=== PATIENT | female | born 1970 | race Caucasian/White ===

== ENCOUNTER 2024-06-06 09:34 | Emergency (ER) | payer MEDICAID, OTHER ==
[~2024-06-06] VITALS: Ht 175.3 cm; Wt 129.5 kg
[2024-06-06 10:09] VITALS: BP 110/74; PULSE 69; RESP 16; TEMP 98.2; O2SAT 98
[2024-06-06 10:24] LABS: Urine Bacteria None Seen /hpf (None Seen)
--- NOTE | 2024-06-06 10:29 | ED.PDOC ---
History of Present Illness HPI Comments A 54 YEAR OLD FEMALE PRESENTS TO THE ED WITH COMPLAINT OF LEFT-SIDED PELVIC PAIN AND LEFT BREAST PAIN. PATIENT STATES SHE HAS A HISTORY OF A LEFT BREAST INFECTION OFF AND ON FOR THE PAST 2 YEARS AND BEGAN EXPERIENCING LEFT BREAST REDNESS AND PAIN YESTERDAY ONCE AGAIN. PATIENT REPORTS SHE HAS ALSO BEEN EXPERIENCING LEFT-SIDED PELVIC PAIN OFF AND ON FOR THE PAST 2 YEARS AND BEGAN TO EXPERIENCE PELVIC PAIN ONCE AGAIN YESTERDAY. PATIENT DENIES DYSURIA, HEMATURIA, FEVER, CHILLS, SHORTNESS OF BREATH, CHEST PAIN, ABDOMINAL PAIN, NAUSEA, VOMITI NG, HEADACHE, OR OTHER COMPLAINTS. NO OTHER SYMPTOMS OR MODIFYING FACTORS AT THIS TIME. PATIENT IS ALERT, ORIENTED X 4, AND HAS STEADY GAIT. Chief Complaint: Pelvic Pain Time Seen by MD: 09:40 Reviewed Notes: Nurses Notes, Medications, Allergies Allergies: Coded Allergies: NO KNOWN ALLERGIES (Unverified , 06/06/24) Home Meds Active Scripts Clindamycin Hcl (Clindamycin Hcl) 300 Mg Cap, 300 MG PO QID for 10 Days, #40 CAP Prov:ENRIKE RIOS 06/06/24 Ibuprofen (Ibuprofen) 800 Mg Tab, 1 TAB PO TID, #30 TAB Prov:ENRIKE RIOS 06/06/24 Information Source: Patient Mode of Arrival: Ambulatory Severity: Moderate Timing: Days Duration: Since onset, Days Prehospital treatment: None Medication Refill: For: Other (LEFT-SIDED PELVIC PAIN AND LEFT BREAST PAIN) Past Medical History Past Medical History (Other): CHRONIC LEFT PELVIC PAIN Surgical History: Denies all surgeries SENIOR FINANCIAL REPORTING ACCOUNTANT History: No Pertinent SENIOR FINANCIAL REPORTING ACCOUNTANT History Family History Family History: Reviewed,noncontributory to illness Social History Smoker: Non-Smoker Alcohol: Denies ETOH Use Drugs: Denies Drug Use Lives In: Home Constitutional: denies: chills, diaphoresis, fatigue, fever, malaise, sweats, weakness, others EENTM: denies: blurred vision, double vision, ear bleeding, ear discharge, ear drainage, ear pain, ear ringing, eye pain, eye redness, hearing loss, mouth pain, mouth swelling, nasal discharge, nose bleeding, nose congestion, nose pain, photophobia, tearing, throat pain, throat swelling, voice changes, others Respiratory: denies: cough, hemoptysis, orthopnea, SOB at rest, shortness of breath, SOB with excertion, stridor, wheezing, others Cardiovascular: denies: chest pain, dizzy spells, diaphoresis, Dyspnea on exertion, edema, irregular heart beat, left arm pain, lightheadedness, palpitations, PND, syncope, others Gastrointestinal: denies: abdomen distended, abdominal pain, blood streaked bowels, constipated, diarrhea, dysphagia, difficulty swallowing, hematemesis, melena, nausea, poor appetite, poor fluid intake, rectal bleeding, rectal pain, vomiting, others Genitourinary: reports: pain (LEFT PELVIC PAIN); denies: abnormal vagina bleeding, burning, dyspareunia, dysuria, flank pain, frequency, hematuria, incontinence, , vagina discharge, urgency, others Neurological: denies: dizziness, fainting, headache, left sided numbness, left sided weakness, numbness, paresthesia, pre-existing deficit, right sided numbness, right sided weakness, seizure, speech problems, tingling, tremors, weakness, others Musculoskeletal: denies: back pain, gout, joint pain, joint swelling, muscle pain, muscle stiffness, neck pain, others Integumetry: reports: others (LEFT-SIDED BREAST REDNESS WITH PAIN); denies: bruises, change in color, change in hair/nails, dryness, laceration, lesions, lumps, rash, wounds Allergic/Immunocompromised: denies: Difficulty Healing, Frequent Infections, Hives, Itching, others Hematologic/Lymphatic: denies: anemia, blood clots, easy bleeding, easy bruising, swollen glands, others Endocrine: denies: excessive hunger, excessive sweating, excessive thirst, excessive urination, flushing, intolerance to cold, intolerance to heat, unexplained weight gain, unexplained weight loss, others Psychiatric: denies: anxiety, bipolar disorder, depression, hopeless, panic disorder, schizophrenia, sleepless, suicidal, others All Other Systems: Reviewed and Negative Physical Exam General Appearance: No Apparent Distress, Obese HEENT: Normal ENT Inspection, PERRL/EOMI, Pharynx Normal, TMs Normal Neck: Full Range of Motion, Non-Tender, Normal, Normal Inspection Respiratory: Chest Non-Tender, Lungs Clear, No Accessory Muscle Use, No Respiratory Distress, Normal Breath Sounds Cardiovascular: No Edema, No JVD, No Murmur, No Gallop, Normal Peripheral Pu lses, Regular Rate/Rhythm Breast Exam: (L) Tenderness (WITH TWO SMALL RED BUMPS ON LEFT UPPER NIPPLE REGION, NO OPEN WOUND AND PUS DRAINAGE. ), Other (NO LUMP, CYSTS, OR NODULES NOTED TO BILATERAL BREASTS. ) Gastrointestinal: No Organomegaly, Non Tender, No Pulsatile Mass, Normal Bowel Sounds, Soft Genitalia: Deferred Pelvic: Normal External Exam, Tender Adnexa (TENDERNESS ON LEFT PELVIC, NO GUARDING AND REBOUND TENDERNESS. ) Rectal: Deferred Extremities: No calf tenderness, Normal capillary refill, Normal inspection, Normal range of motion, Non-tender, No pedal edema Musculoskeletal : Apperance: Normal Neurologic: Alert, dental chair assembler II-XII nml as Tested, No Motor Deficits, Normal Affect, Normal Mood, No Sensory Deficits Cerebellar Function: Normal Reflexes: Normal Skin: Dry, Normal Color, Warm Peripheral Pulses: 2+ carotid (R), 2+ carotid (L) Lymphatic: No Adenopathy Was a procedure done? Was a procedure done?: No Differential Dx Considerations may include: ACUTE UTI, ACUTE CYSTITIS, SOFT TISSUE INFECTION, BREAST CELLULITIS, SKIN PIMPLE , CHRONIC PELVIC PAIN X-Ray, Labs, Meds, VS Vital Signs Date Time Temp Pulse Resp B/P (MAP) Pulse Ox O2 Delivery O2 Flow Rate FiO2 06/06/24 10:09 98.2 69 16 110/74 (86) 98 98.2 06/06/24 10:09 69 16 98 Room Air 06/06/24 09:42 98.2 69 16 110/74 (86) 98 Lab Test 06/06/24 10:25 06/06/24 10:05 Range/Units White Blood Count 9.4 4.4-10.8 10^3/uL Red Blood Count 4.89 4.0-5.20 10^6/uL Hemoglobin 15.5 12.2-16.2 g/dL Hematocrit 45.1 36.0-46.0 % Mean Corpuscular Volume 92.3 80.0-100.0 fL Mean Corpuscular Hemoglobin 31.7 28.0-32.0 pg Mean Corpuscular Hemoglobin Concent 34.4 32.0-36.0 g/dL Red Cell Distribution Width 13.2 11.8-14.3 % Platelet Count 342 140-450 10^3/uL Mean Platelet Volume 7.1 6.9-10.8 fL Neutrophils (%) (Auto) 55.2 37.0-80.0 % Lymphocytes (%) (Auto) 35.1 10.0-50.0 % Monocytes (%) (Auto) 6.3 0.0-12.0 % Eosinophils (%) (Auto) 2.9 0.0-7.0 % Basophils (%) (Auto) 0.5 0.0-2.0 % Neutrophils # (Auto) 5.2 1.6-8.6 10 ^3/uL Lymphocytes # (Auto) 3.3 0.4-5.4 10 ^3/uL Monocytes # (Auto) 0.6 0-1.3 10 ^3/uL Eosinophils # (Auto) 0.3 0-0.8 10 ^3/uL Basophils # (Auto) 0 0-0.2 10 ^3/uL Nucleated Red Blood Cells 0.0 % Sodium Level 140 136-145 mmol/L Potassium Level 4.3 3.5-5.1 mmol/L Chloride Level 107 98-107 mmol/L Carbon Dioxide Level 28 20-31 mmol/L Anion Gap 5 5-15 Blood Urea Nitrogen 12 9-23 mg/dL Creatinine 0.71 0.550-1.02 mg/dL Glomerular Filtration Rate Calc 102 >90 mL/min BUN/Creatinine Ratio 16.9 10.0-20.0 Serum Glucose 83 74-106 mg/dL Calcium Level 9.4 8.7-10.4 mg/dL Urine Color Light-yellow Yellow Urine Clarity Clear Clear Urine pH 6.0 5.0-9.0 Urine Specific [place] 1.014 1.001-1.035 Urine Protein Negative Negative Urine Ketones Negative Negative Urine Blood Negative Negative /uL Urine Nitrite Negative Negative Urine Bilirubin Negative Negative Urine Urobilinogen Normal Negative mg/dL Urine Leukocyte Esterase Negative Negative /uL Urine RBC 1 0 - 4 /hpf Urine Microscopic WBC < 1 0-5 /HPF Urine Squamous Epithelial Cells Few <5 /hpf Urine Bacteria None seen None Seen /hpf Urine Glucose Normal Normal mg/dL PATIENT: JUDI VELÁSQUEZCCT: [id number]: [id number] : 1970 LOC: ER ROOM / BED: / AGE / SEX: 54 / F ADM STATUS: REG ER SERVICE 1019 ORDERING PHYSICIAN: ENRIKE RIOS PROCEDURE(s): PELUS - PELVIC REASON: LEFT PELVIC PAIN ORDER NUMBER(s): [id number], ACCESSION NUMBER(s): [id number] INDICATION: LEFT PELVIC PAIN TECHNIQUE: Multiple real-time grayscale transabdominal transvaginal sonographic images along with color and duplex Doppler of the uterus and ovaries were obtained. COMPARISON: None FINDINGS: The uterus measures 7.2 x 3.9 x 5.5 cm. The endometrial stripe measures 0.3 cm. Intrauterine device is visualized in the endometrial cavity. Possible trace fluid in the endometrium. The right ovary is not well visualized due to obscuration from bowel gas. The left ovary measures 2.1 x 1.9 x 2.2 cm. Subsequent color and duplex Doppler interrogation of the ovaries demonstrated symmetric vascular flow to both ovaries, though this does not exclude the possibility of torsion due to the dual blood supply. IMPRESSION: Intrauterine device is visualized in the endometrial cavity. Normal sonographic appearance of the uterus and left ovary. Right ovary obscured due to overlying bowel gas. ATED BY: MARLENE CHUA MD DICTATED DATE/TIME: 06/06/24 1132 SIGNED BY: MARLENE CHUA MD SIGNED DATE/TIME: 06/06/24 1132 X-Ray, Labs, Meds, VS Comment EXTERNAL MEDICAL RECORDS REVIEWED: [NONE] INDEPENDENT HISTORIANS: [NONE] SOCIAL DETERMINANTS OF HEALTH: [NONE] LABS ORDERED: UA, CBC, BMP REVIEWED AND INTERPRETED RESULTS: LEUKO 1+, BLOOD 3+ IMAGING ORDERED: US PELVIS: [INTERPRETED BY US TECH. NO ABNORMALITIES SEEN AT THIS TIME. IUD VISUALIZED. PENDING RADIOLOGY REVIEW.] PATIENT DECLINED CT-ABD/PELVIC SCAN AT THIS TIME, SHE STATES HER SYMPTOMS ARE A CHRONIC ISSUE. TREATMENTS ORDERED: NONE PROCEDURES PERFORMED: NONE CRITICAL CARE TIME: NONE I HAVE DISCUSSED THE PATIENT WITH THE ATTENDING PHYSICIAN DR. DELGADO AND HE AGREES WITH THE PATIENT'S PLAN OF CARE AND DISPOSITION. BASED ON HISTORY OF PRESENT ILLNESS, AND PHYSICAL EXAM, PATIENT WILL BE DISCHARGED HOME. SHARED DECISION MAKING: PATIENT INSTRUCTED TO FOLLOW UP WITH PRIMARY CARE PROVIDER IN 1-2 DAYS FOR RE-EVALUATION OF SYMPTOMS. PATIENT VERBALIZES UNDERSTANDING TO RETURN TO ED FOR NEW OR WORSENING SYMPTOMS OR IF FOLLOW UP WITH PCP CANNOT BE OBTAINED. PATIENT FEELS COMFORTABLE GOING HOME AT THIS TIME. ALL QUESTIONS ADDRESSED AT TIME OF DISCHARGE. Images Reviewed?: Images reviewed and evaluated by me Time of 1ST Reevaluation: 11:23 Reevaluation 1ST: Unchanged Patient Education/Counseling: Diagnosis, Treatment, Need For Follow Up Family Education/Counseling: Diagnosis, Treatment, Need For Follow Up Medical Screening: No EMC Exist At This Time Departure 1 Departure Time of Disposition: 11:24 Impression: Primary Impression: Chronic pelvic pain in female Additional Impressions: Pain of left breast Suspected soft tissue infection Disposition: HOME / SELF CARE / HOMELESS Condition: Stable Additional Instructions: FOLLOW-UP WITH PCP/CUTTING AND SPLICING SUPERVISOR IN 2 DAYS. TAKE MEDICATIONS PRESCRIBED. RETURN TO ED FOR ANY NEW OR WORSENING SYMPTOMS. e-Prescriptions Clindamycin Hcl (Clindamycin Hcl) 300 Mg Cap 300 MG PO QID for 10 Days, #40 CAP Prov: ENRIKE RIOS 06/06/24 Ibuprofen (Ibuprofen) 800 Mg Tab 1 TAB PO TID, #30 TAB Prov: ENRIKE RIOS 06/06/24 Discharged With: Self Critical Care Note Critical Care Time?: No Stability Stability form required: No I personally scribed for ENRIKE RIOS ([email or web address]) on 06/06/24 at 10:29. Elec tronically submitted by Kelton Trinidad ([email or web address]). ENRIKE RIOS Jun 06, 2024 10:29
[2024-06-06 10:40] LABS: Urine Blood Negative /uL (Negative); Urine Clarity Clear (Clear); Urine Color Light-Yellow (Yellow); Urine Protein, UAD Negative (Negative); Urine Specific Gravity 1.014 (1.001-1.035); Urine Squamous Epithelial Cell FEW /hpf (<5); Urine Urobilinogen Normal (Negative); Urine WBC < 1 /HPF (0-5)
[2024-06-06 10:49] LABS: Basophils # (auto) 0 10 ^3/uL (0-0.2); Basophils % (auto) 0.5 % (0.0-2.0); Eosinophils # (auto) 0.3 10 ^3/uL (0-0.8); Eosinophils % (auto) 2.9 % (0.0-7.0); Hematocrit 45.1 % (36.0-46.0); Hemoglobin 15.5 g/dL (12.2-16.2); Lymphocytes # (auto) 3.3 10 ^3/uL (0.4-5.4); Lymphocytes % (auto) 35.1 % (10.0-50.0); Mean Corpuscular Hemoglobin 31.7 pg (28.0-32.0); Mean Corpuscular Hgb Conc. 34.4 g/dL (32.0-36.0); Mean Corpuscular Volume 92.3 fL (80.0-100.0); Monocytes # (auto) 0.6 10 ^3/uL (0-1.3); Monocytes % (auto) 6.3 % (0.0-12.0); Neutrophils # (auto) 5.2 10 ^3/uL (1.6-8.6); Neutrophils % (auto) 55.2 % (37.0-80.0); Platelet Count (auto) 342 10^3/uL (140-450); Red Blood Cells 4.89 10^6/uL (4.0-5.20); Red Cell Distribution Width 13.2 % (11.8-14.3); White Blood Cell 9.4 10^3/uL (4.4-10.8)
[2024-06-06 10:57] LABS: Chloride 107 mmol/L (98-107); Potassium 4.3 mmol/L (3.5-5.1); Sodium 140 mmol/L (136-145)
[2024-06-06 10:58] LABS: Anion Gap 5 (5-15); Carbon Dioxide 28 mmol/L (20-31)
[2024-06-06 10:59] LABS: Calcium 9.4 mg/dL (8.7-10.4)
[2024-06-06 11:03] LABS: BUN/Creatinine Ratio 16.9 (10.0-20.0); Blood Urea Nitrogen 12 mg/dL (9-23); Glucose 83 mg/dL (74-106)
[2024-06-06] MEDS ORDERED: IBUP-1456 PO (11:27)
[2024-06-06] MEDS ORDERED: CLIN1CAP70 PO (11:27)
--- NOTE | 2024-06-06 11:34 | DVH ---
INDICATION: LEFT PELVIC PAIN TECHNIQUE: Multiple real-time grayscale transabdominal transvaginal sonographic images along with col or and duplex Doppler of the uterus and ovaries were obtained. COMPARISON: None FINDINGS: The uterus measures 7.2 x 3.9 x 5.5 cm. The endometrial stripe measures 0.3 cm. Intrauterin e device is visualized in the endometrial cavity. Possible trace fluid in the endometrium. The right ovary is not well visualized due to obscuration from bowel gas. The left ovary measures 2.1 x 1.9 x 2.2 cm. Subsequent color and duplex Doppler interrogation of the ovaries demonstrated symmetric vascular flow to both ovaries, though this does not exclude the possibility of torsion due to the dual blood suppl y. IMPRESSION: Intrauterine device is visualized in the endometrial cavity. Normal sonographic appearance of the [place] and left ovary. Right ovary obscured due to overlying bowel gas.
== END 2024-06-06 11:32 | disposition home or self-care (01) ==
LOC: ER 09:34
DX: N64.4 Mastodynia (principal); G89.29 Other chronic pain; R10.2 Pelvic and perineal pain; Z79.1 Long term (current) use of non-steroidal anti-inflammatories (NSAID)
CPT/HCPCS: 36415; 76830; 76856; 80048; 81001; 85025

== ENCOUNTER 2024-06-07 10:31 | Emergency (ER) | payer MEDICAID ==
[~2024-06-07] VITALS: Ht 175.3 cm; Wt 133.3 kg
[~2024-06-07 10:31] MED LIST: CLIN1CAP70 PO; IBUP-1456 PO
[2024-06-07 10:45] VITALS: BP 121/68; PULSE 66; RESP 22; TEMP 97.8; O2SAT 99
--- NOTE | 2024-06-07 10:53 | ED.PDOC ---
General HPI Comments A 54 YEAR OLD FEMALE PRESENTS TO THE ED WITH COMPLAINT OF RIGHT FLANK PAIN. PATIENT STATES SHE HAS BEEN EXPERIENCING RIGHT-SIDED FLANK PAIN THAT STARTED TODAY WHEN SHE WOKE UP. PATIENT WAS HERE IN THIS ED YESTERDAY FOR PELVIC PAIN WHERE AN ULTRASOUND AND LABS WERE DONE ALL OF WHICH WAS NORMAL. PATIENT DENIES DYSURIA, HEMATURIA, FEVER, CHILLS, SHORTNESS OF BREATH, CHEST PAIN, ABDOMINAL PAIN, NAUSEA, VOMITING, HEADACHE, OR OTHER COMPLAINTS. NO OTHER SYMPTOMS OR MODIFYING FACTORS AT THIS TIME. PATIENT IS ALERT, ORIENTED X 4, AND HAS STEADY GAIT. Chief Complaint: Abdominal Pain Time Seen by MD: 10:36 Reviewed notes: Nurses Notes, Medications, Allergies Allergies: Coded Allergies: NO KNOWN ALLERGIES (Unverified , 06/06/24) Home Meds Active Scripts Clindamycin Hcl (Clindamycin Hcl) 300 Mg Cap, 300 MG PO QID for 10 Days, #40 CAP Prov:ENRIKE RIOS 06/06/24 Ibuprofen (Ibuprofen) 800 Mg Tab, 1 TAB PO TID, #30 TAB Prov:ENRIKE RIOS 06/06/24 Information Source: Patient Mode of Arrival: Ambulatory Severity: Moderate Timing: Hours Duration: Since onset, Hours Prehospital treatment: None Onset: Spontaneous Symptoms: Other (FLANK PAIN) History of: None Location: (R) Flank Modifying factors: None associated signs and symptoms: Flank Pain Past Medical History Past Medical History (Other): HEP C Surgical History: Cholecystectomy ENERGY CONSERVATION DIRECTOR History: No Pertinent ENERGY CONSERVATION DIRECTOR History Family History Family History: Reviewed,noncontributory to illness Social History Smoker: Non-Smoker Alcohol: Denies ETOH Use Drugs: Denies Drug Use Lives In: Home Constitutional: denies: chills, diaphoresis, fatigue, fever, malaise, sweats, weakness, others EENTM: denies: blurred vision, double vision, ear bleeding, ear discharge, ear drainage, ear pain, ear ringing, eye pain, eye redness, hearing loss, mouth pain, mouth swelling, nasal discharge, nose bleeding, nose congestion, nose pain, photophobia, tearing, throat pain, throat swelling, voice changes, others Respiratory: denies: cough, hemoptysis, orthopnea, SOB at rest, shortness of breath, SOB with excertion, stridor, wheezing, others Cardiovascular: denies: chest pain, dizzy spells, diaphoresis, Dyspnea on exertion, edema, irregular heart beat, left arm pain, lightheadedness, palpitations, PND, syncope, others Gastrointestinal: denies: abdomen distended, abdominal pain, blood streaked bowels, constipated, diarrhea, dysphagia, difficulty swallowing, hematemesis, me davion, nausea, poor appetite, poor fluid intake, rectal bleeding, rectal pain, vomiting, others Genitourinary: reports: flank pain; denies: abnormal vagina bleeding, burning, dyspareunia, dysuria, frequency, hematuria, incontinence, pain, , vagina discharge, urgency, others Neurological: denies: dizziness, fainting, headache, left sided numbness, left sided weakness, numbness, paresthesia, pre-existing deficit, right sided numbness, right sided weakness, seizure, speech problems, tingling, tremors, weakness, others Musculoskeletal: denies: back pain, gout, joint pain, joint swelling, muscle pain, muscle stiffness, neck pain, others Integumetry: denies: bruises, change in color, change in hair/nails, dryness, laceration, lesions, lumps, rash, wounds, others Allergic/Immunocompromised: denies: Difficulty Healing, Frequent Infections, Hives, Itching, others Hematologic/Lymphatic: denies: anemia, blood clots, easy bleeding, easy bruising, swollen glands, others Endocrine: denies: excessive hunger, excessive sweating, excessive thirst, excessive urination, flushing, intolerance to cold, intolerance to heat, unexplained weight gain, unexplained weight loss, others Psychiatric: denies: anxiety, bipolar disorder, depression, hopeless, panic disorder, schizophrenia, sleepless, suicidal, others All Other Systems: Reviewed and Negative Physical Exam General Appearance: No Apparent Distress, Obese HEENT: Normal ENT Inspection, PERRL/EOMI, Pharynx Normal, TMs Normal Neck: Full Range of Motion, Non-Tender, Normal, Normal Inspection Respiratory: Chest Non-Tender, Lungs Clear, No Accessory Muscle Use, No Respiratory Distress, Normal Breath Sounds Cardiovascular: No Edema, No JVD, No Murmur, No Gallop, Normal Peripheral Pulses, Regular Rate/Rhythm Breast Exam: Deferred Gastrointestinal: No Organomegaly, No Pulsatile Mass, Normal Bowel Sounds, Soft, Tenderness (RIGHT FLANK, NO GUARDING AND REBOUND TENDERNESS, NO CVA TENDERNESS. ) Genitalia: Deferred Pelvic: Normal External Exam Rectal: Deferred Extremities: No calf tenderness, Normal capillary refill, Normal inspection, Normal range of motion, Non-tender, No pedal edema Musculoskeletal : Apperance: Normal Neurologic: Alert, patent drafter II-XII nml as Tested, No Motor Deficits, Normal Affect, Normal Mood, No Sensory Deficits Cerebellar Function: Normal Reflexes: Normal Skin: Dry, Normal Color, Warm Peripheral Pulses: 2+ carotid (R), 2+ carotid (L) Lymphatic: No Adenopathy Was a procedure done? Was a procedure done?: No Differential Diagnosis Kidney stone (Female): Hepatitis, Musculoskeletal pain, Pyelonephritis, Renal failure, Strain, Urolithiasis Kidney stone (Male): N/A Penile/Scrotal: N/A Urinary Problem (Male): Other Urinary Problem (Female): N/A X-Ray, Labs, Meds, VS Vital Signs Date Time Temp Pulse Resp B/P (MAP) Pulse Ox O2 Delivery O2 Flow Rate FiO2 06/07/24 10:45 97.8 66 22 121/68 (85) 99 97.8 06/07/24 10:45 66 22 99 Room Air 06/07/24 10:43 97.8 66 22 121/68 (85) 99 97.8 Lab Test 06/07/24 11:12 06/07/24 10:30 Range/Units White Blood Count 9.3 4.4-10.8 10^3/uL Red Blood Count 4.61 4.0-5.20 10^6/uL Hemoglobin 14.8 12.2-16.2 g/dL Hematocrit 42.5 36.0-46.0 % Mean Corpuscular Volume 92.2 80.0-100.0 fL Mean Corpuscular Hemoglobin 32.0 28.0-32.0 pg Mean Corpuscular Hemoglobin Concent 34.7 32.0-36.0 g/dL Red Cell Distribution Width 13.0 11.8-14.3 % Platelet Count 318 140-450 10^3/uL Mean Platelet Volume 7.3 6.9-10.8 fL Neutrophils (%) (Auto) 55.7 37.0-80.0 % Lymphocytes (%) (Auto) 34.3 10.0-50.0 % Monocytes (%) (Auto) 6.7 0.0-12.0 % Eosinophils (%) (Auto) 2.8 0.0-7.0 % Basophils (%) (Auto) 0.5 0.0-2.0 % Neutrophils # (Auto) 5.2 1.6-8.6 10 ^3/uL Lymphocytes # (Auto) 3.2 0.4-5.4 10 ^3/uL Monocytes # (Auto) 0.6 0-1.3 10 ^3/uL Eosinophils # (Auto) 0.3 0-0.8 10 ^3/uL Basophils # (Auto) 0 0-0.2 10 ^3/uL Nucleated Red Blood Cells 0.0 % Sodium Level 141 136-145 mmol/L Potassium Level 4.6 3.5-5.1 mmol/L Chloride Level 106 98-107 mmol/L Carbon Dioxide Level 30 20-31 mmol/L Anion Gap 5 5-15 Blood Urea Nitrogen 15 9-23 mg/dL Creatinine 0.64 0.550-1.02 mg/dL Glomerular Filtration Rate Calc 106 >90 mL/min BUN/Creatinine Ratio 23.4 H 10.0-20.0 Serum Glucose 88 74-106 mg/dL Calcium Level 9.1 8.7-10.4 mg/dL Total Bilirubin 0.5 0.2-1.0 mg/dL Aspartate Amino Transferase (AST) 39 13-40 U/L Alanine Aminotransferase (ALT) 57 H 7-40 U/L Alkaline Phosphatase 62 46-116 U/L Total Protein 6.9 5.7-8.2 g/dL Albumin 4.0 3.2-4.8 g/dL Lipase 39 12-53 U/L Urine Color Light-yellow Yellow Urine Clarity Clear Clear Urine pH 6.5 5.0-9.0 Urine Specific [place] 1.015 1.001-1.035 Urine Protein Negative Negative Urine Ketones Negative Negative Urine Blood Negative Negative /uL Urine Nitrite Negative Negative Urine Bilirubin Negative Negative Urine Urobilinogen Normal Negative mg/dL Urine Leukocyte Esterase Negative Negative /uL Urine RBC 1 0 - 4 /hpf Urine Microscopic WBC < 1 0-5 /HPF Urine Squamous Epithelial Cells Few <5 /hpf Urine Bacteria None seen None Seen /hpf Urine Glucose Normal Normal mg/dL Urine Opiates Screen Neg NEGATIVE Urine Fentanyl Screen Neg NEGATIVE Urine Barbiturates Screen Neg NEGATIVE Urine Phencyclidine Screen Neg NEGATIVE Urine Amphetamines Screen Neg NEGATIVE Urine Benzodiazepines Screen Neg NEGATIVE Urine Cocaine Screen Neg NEGATIVE Urine Cannabinoids Screen Pos NEGATIVE Current Medications Medications (Trade) Dose Ordered Sig/Sergio Route Start Time Stop Time Status Last Admin Ketorolac Tromethamine (Toradol Injection) 60 mg ONCE ONCE IM 06/07/24 12:15 06/07/24 12:16 DC 06/07/24 12:09 Procedure: CT CT AB PEL WO CON-NO ORAL OR IV 06/07/2024 10:42 AM Indication: RIGHT FLANK PAIN Comparison Study: None Technique: Axial images were obtained and reformatted in coronal and sagittal planes. All CT scans at this medical facility are performed using dose modulation techniques as appropriate to a performed exam including the follow ing: Automated exposure control was utilized; adjustment of the MA and/or KV according to patient size; and use of iterative reconstruction technique. CT Dose: CTDI volume is 25 mGy. Dose-length product is 1360.7 mGy*cm FINDINGS: Lower Chest: Unremarkable. Hepatobiliary: Hepatic steatosis. Gallbladder is surgically absent. Spleen: Unremarkable. Pancreas: Unremarkable. Adrenal Glands: Unremarkable. tract: The kidneys are normal in size bilaterally without hydronephrosis or nephrolithiasis. The urinary bladder is unremarkable. GI tract: The stomach is grossly normal in appearance. No evidence of small bowel obstruction. The large bowel is unremarkable. The appendix is normal. Lymphatics: No mesenteric, retroperitoneal or periportal lymphadenopathy. Vasculature: Aorta is normal in caliber. Scattered calcified plaques are noted. Pelvic Organs: Anteverted uterus. An IUD is seen that is tilted to the right penetrating uterine fundus with the tip of the left arm extending beyond the serosa. A 2.7 cm simple appearing pelvic cyst is seen on the right lateral aspect of the uterine cervix likely a peritoneal inclusion cyst. Bones/soft tissues: No acute abnormality. Degenerative changes of the lumbar spine noted. Small fat-containing umbilical hernia. Moderate chronic appearing depression of the superior endplate of T12 with approximately 50% loss of height centrally without retropulsion. Subcentimeter sclerotic focus noted in the right pubic body that may represent a benign bone island in the absence of known malignancy. Other: None. IMPRESSION: 1. No CT evidence of acute abnormality in the abdomen and pelvis. Specifically, no evidence of hydronephrosis, hydroureter or ureterolithiasis. The appendix is normal. 2. Myometrial penetration of the IUD. 3. Hepatic steatosis. ATED BY: JESSIE NEWMAN MD DICTATED DATE/TIME: 06/07/241211 SIGNED BY: JESSIE NEWMAN MD SIGNED DATE/TIME: 06/07/241211 CC: X-Ray, Labs, Meds, VS Comment EXTERNAL MEDICAL RECORDS REVIEWED: [NONE] INDEPENDENT HISTORIANS: [NONE] SOCIAL DETERMINANTS OF HEALTH: [NONE] LABS ORDERED: UA, UDS, CBC, CMP, LIPASE REVIEWED AND INTERPRETED RESULTS: THC POSITIVE IMAGING ORDERED: CT ABD/PEL 1225: I HAVE CONSULTED THE ON-CALL MERCHANDISING STOCK ASSOCIATE DR. MONTEZ REGARDING THIS PATIENT'S CASE AND CT SCAN RESULTS: MYOMETRIAL PENETRATION OF IUD AND SHE HAS SAID THIS IS NOT A MEDICAL EMERGENCY AND SHE CAN FOLLOW UP WITH HER MERCHANDISING STOCK ASSOCIATE FOR REMOVAL OF HER IUD. SHE HAS SAID THE PATIENT IS OKAY TO BE DISCHARGED HOME AT THIS TIME AND CAN FOLLOW UP WITH HER MERCHANDISING STOCK ASSOCIATE FOR REMOVAL OF HER IUD. TREATMENTS ORDERED: TORADOL 60MG IM PROCEDURES PERFORMED: NONE CRITICAL CARE TIME: NONE I HAVE DISCUSSED THE PATIENT WITH THE ATTENDING PHYSICIAN DR. EMIR HENRIQUEZ AND SHE AGREES WITH THE PATIENT'S PLAN OF CARE AND DISPOSITION. BASED ON HISTORY OF PRESENT ILLNESS, AND PHYSICAL EXAM, PATIENT WILL BE DISCHARGED HOME. SHARED DECISION MAKING: PATIENT INSTRUCTED TO FOLLOW UP WITH PRIMARY CARE PROVIDER IN 1-2 DAYS FOR RE-EVALUATION OF SYMPTOMS. PATIENT VERBALIZES UNDERSTANDING TO RETURN TO ED FOR NEW OR WORSENING SYMPTOMS OR IF FOLLOW UP WITH PCP CANNOT BE OBTAINED. PATIENT FEELS COMFORTABLE GOING HOME AT THIS TIME. ALL QUESTIONS ADDRESSED AT TIME OF DISCHARGE. Images Reviewed?: Images reviewed and evaluated by me Time of 1ST Reevaluation: 12:54 Reevaluation 1ST: Improved Consultation: geospatial imagery intelligence analyst (1225: I HAVE CONSULTED THE ON-CALL MERCHANDISING STOCK ASSOCIATE DR. MONTEZ REGARDING THIS PATIENT'S CASE AND CT SCAN RESULTS AND SHE HAS SAID THIS IS NOT A MEDICAL EMERGENCY AND SHE CAN FOLLOW UP WITH HER MERCHANDISING STOCK ASSOCIATE FOR REMOVAL OF HER IUD. SHE HAS SAID THE PATIENT IS OKAY TO BE DISCHARGED HOME AT THIS TIME AND CAN FOLLOW UP WITH HER MERCHANDISING STOCK ASSOCIATE FOR REMOVAL OF HER IUD.) Patient Education/Counseling: Diagnosis, Treatment, Need For Follow Up Family Education/Counseling: Diagnosis, Treatment, Need For Follow Up Medical Screening: No EMC Exist At This Time Departure 1 Departure Time of Disposition: 12:55 Impression: Primary Impression: Hepatic steatosis Additional Impressions: Pelvic cyst in female Malpositioned intrauterine device Qualified Codes: T83.32XA - Displacement of intrauterine contraceptive device, initial encounter Disposition: HOME / SELF CARE / HOMELESS Condition: Stable Additional Instructions: FOLLOW-UP WITH PCP/MERCHANDISING STOCK ASSOCIATE DELL. TAKE MEDICATIONS PRESCRIBED. RETURN TO ED FOR ANY NEW OR WORSENING SYMPTOMS. Written Prescriptions PT WAS IN THIS ER YESTERDAY AND WAS GIVEN PAIN RX. Discharged With: Self, Relative Critical Care Note Critical Care Time?: No Stability Stability form required: No I personally scribed for ENRIKE RIOS ([email or web address]) on 06/07/24 at 10:53. Electronically submitted by Kelton Trinidad ([email or web address]). I personally scribed for ENRIKE RIOS ([email or web address]) on 06/07/24 at 12:38. Electronically submitted by Kelton Trinidad ([email or web address]). ENRIKE RIOS Jun 07, 2024 10:53
[2024-06-07 11:33] LABS: Basophils # (auto) 0 10 ^3/uL (0-0.2); Basophils % (auto) 0.5 % (0.0-2.0); Eosinophils # (auto) 0.3 10 ^3/uL (0-0.8); Eosinophils % (auto) 2.8 % (0.0-7.0); Hematocrit 42.5 % (36.0-46.0); Hemoglobin 14.8 g/dL (12.2-16.2); Lymphocytes # (auto) 3.2 10 ^3/uL (0.4-5.4); Lymphocytes % (auto) 34.3 % (10.0-50.0); Mean Corpuscular Hgb Conc. 34.7 g/dL (32.0-36.0); Mean Corpuscular Volume 92.2 fL (80.0-100.0); Monocytes # (auto) 0.6 10 ^3/uL (0-1.3); Monocytes % (auto) 6.7 % (0.0-12.0); Neutrophils # (auto) 5.2 10 ^3/uL (1.6-8.6); Neutrophils % (auto) 55.7 % (37.0-80.0); Platelet Count (auto) 318 10^3/uL (140-450); Red Blood Cells 4.61 10^6/uL (4.0-5.20); White Blood Cell 9.3 10^3/uL (4.4-10.8)
[2024-06-07 11:36] LABS: Urine Bacteria None Seen /hpf (None Seen)
[2024-06-07 11:48] LABS: Alkaline Phosphatase 62 U/L (46-116); Anion Gap 5 (5-15); BUN/Creatinine Ratio 23.4 (10.0-20.0); Blood Urea Nitrogen 15 mg/dL (9-23); Calcium 9.1 mg/dL (8.7-10.4); Carbon Dioxide 30 mmol/L (20-31); Chloride 106 mmol/L (98-107); Glucose 88 mg/dL (74-106); Potassium 4.6 mmol/L (3.5-5.1); Sodium 141 mmol/L (136-145); Total Protein 6.9 g/dL (5.7-8.2)
[2024-06-07 11:48] LABS: Urine Blood Negative /uL (Negative); Urine Clarity Clear (Clear); Urine Color Light-Yellow (Yellow); Urine Protein, UAD Negative (Negative); Urine Specific Gravity 1.015 (1.001-1.035); Urine Squamous Epithelial Cell FEW /hpf (<5); Urine Urobilinogen Normal (Negative); Urine WBC < 1 /HPF (0-5); Urine pH 6.5 (5.0-9.0)
[2024-06-07 11:49] LABS: Alanine Aminotransferase 57 U/L (7-40); Aspartate Aminotransferase 39 U/L (13-40); Bilirubin, Total 0.5 mg/dL (0.2-1.0)
[2024-06-07 11:57] LABS: Cannabinoid Screen, Urine Pos (NEGATIVE)
[2024-06-07 11:58] LABS: Amphetamine Screen, Urine Neg (NEGATIVE); Barbiturate Scree,Urine Neg (NEGATIVE); Benzodiazephine Screen, Urine Neg (NEGATIVE); Cocaine Screen, Urine Neg (NEGATIVE); Opiate Scree,Urine Neg (NEGATIVE); Phencyclidine Screen, Urine Neg (NEGATIVE)
[2024-06-07] MEDS: KETOROLAC TROMETH 60MG/2ML VIAL IM ONE (12:09)
--- NOTE | 2024-06-07 12:14 | DVH ---
Procedure: CT CT AB PEL WO CON-NO ORAL OR IV 06/07/2024 10:42 AM Indication: RIGHT FLANK PAIN Comparison Study: None Technique: Axial images were obtained and reformatted in coronal and sagittal planes. All CT scans at this medical facility are performed using dose modulation techniques as appropriate to a performed e xam including the following: Automated exposure control was utilized; adjustment of the MA and/or KV according to patient size; and use of iterative reconstruction technique. CT Dose: CTDI volume is 25 mGy. Dose-length product is 1360.7 mGy*cm FINDINGS: Lower Chest: Unremarkable. Hepatobiliary: Hepatic steatosis. Gallbladder is surgically absent. Spleen: Unremarkable. Pancreas: Unremarkable. Adrenal Glands: Unremarkable. tract: The kidneys are normal in size bilaterally without hydronephrosis or nephrolithiasis. The u rinary bladder is unremarkable. GI tract: The stomach is grossly normal in appearance. No evidence of small bowel obstruction. The la rge bowel is unremarkable. The appendix is normal. Lymphatics: No mesenteric, retroperitoneal or periportal lymphadenopathy. Vasculature: Aorta is normal in caliber. Scattered calcified plaques are noted. Pelvic Organs: Anteverted uterus. An IUD is seen that is tilted to the right penetrating uterine fund us with the tip of the left arm extending beyond the serosa. A 2.7 cm simple appearing pelvic cyst i s seen on the right lateral aspect of the uterine cervix likely a peritoneal inclusion cyst. Bones/soft tissues: No acute abnormality. Degenerative changes of the lumbar spine noted. Small fat-c ontaining umbilical hernia. Moderate chronic appearing depression of the superior endplate of T12 wit h approximately 50% loss of height centrally without retropulsion. Subcentimeter sclerotic focus note d in the right pubic body that may represent a benign bone island in the absence of known malignancy. Other: None. IMPRESSION: 1. No CT evidence of acute abnormality in the abdomen and pelvis. Specifically, no evidence of hydro nephrosis, hydroureter or ureterolithiasis. The appendix is normal. 2. Myometrial penetration of the IUD. 3. Hepatic steatosis.
== END 2024-06-07 12:45 | disposition home or self-care (01) ==
LOC: ER 10:31
DX: T83.32XA Displacement of intrauterine contraceptive device, initial encounter (principal); K76.0 Fatty (change of) liver, not elsewhere classified; N94.89 Other specified conditions associated with female genital organs and menstrual cycle; Z98.890 Other specified postprocedural states; Z90.49 Acquired absence of other specified parts of digestive tract; Z79.1 Long term (current) use of non-steroidal anti-inflammatories (NSAID); Z79.899 Other long term (current) drug therapy
CPT/HCPCS: 36415; 74176; 80053; 80307; 81001; 83690; 85025; 96372; 99285; J1885

== ENCOUNTER 2024-06-09 09:43 | Emergency (ER) | payer MEDICAID ==
[~2024-06-09] VITALS: Ht 175.3 cm; Wt 132.5 kg
[2024-06-09 10:18] VITALS: BP 150/97; PULSE 84; RESP 19; TEMP 97.7; O2SAT 96
[2024-06-09] MEDS: methylPREDNISolone SOD SUCC 125 MG/2 ML VL IM ONE (10:35)
[2024-06-09] MEDS: KETOROLAC TROMETH 60MG/2ML VIAL IM ONE (10:36)
[2024-06-09] MEDS ORDERED: ACET500T58 PO (11:01)
--- NOTE | 2024-06-09 11:01 | ED.PDOC ---
Eye-HPI HPI Comments 54 year old F presents for sour taste in her mouth. Recently dx with strep and taking clindamycin. Also c/o tenderness to the bilateral cervical lymphnodes Chief Complaint: Sore Throat Time Seen by MD: 10:01 Primary Care Provider: none Reviewed Notes: Nurses Notes, Medications, Allergies Allergies: Coded Allergies: NO KNOWN ALLERGIES (Unverified , 06/06/24) Home Meds Active Scripts Acetaminophen (Acetaminophen) 500 Mg Tab, 500 MG PO Q6HP PRN for 10 Days, #40 TAB 0 Refills Prov:DURAN PRITCHARD Igor PIPELAYER 06/09/24 Clindamycin Hcl (Clindamycin Hcl) 300 Mg Cap, 300 MG PO QID for 10 Days, #40 CAP Prov:ENRIKE RIOS 06/06/24 Ibuprofen (Ibuprofen) 800 Mg Tab, 1 TAB PO TID, #30 TAB Prov:ENRIKE RIOS 06/06/24 Information Source: Patient Mode of Arrival: Ambulatory Past Medical History Surgical History: Cholecystectomy PAYROLL HUMAN RESOURCES ASSISTANT History: No Pertinent PAYROLL HUMAN RESOURCES ASSISTANT History Family History Family History: Reviewed,noncontributory to illness Social History Smoker: Non-Smoker Alcohol: Denies ETOH Use Drugs: Denies Drug Use Lives In: Home All Other Systems: Reviewed and Negative (Per Hpi ) Physical Exam General Appearance: No Apparent Distress, Normal HEENT: Normal ENT Inspection, Pharynx Normal, TMs Normal Neck: Full Range of Motion, Non-Tender, Normal, Normal Inspection Respiratory: Chest Non-Tender, Lungs Clear, No Accessory Muscle Use, No Respiratory Distress, Normal Breath Sounds Cardiovascular: No Murmur, No Gallop, Regular Rate/Rhythm Breast Exam: Deferred Gastrointestinal: No Organomegaly, Non Tender, No Pulsatile Mass, Normal Bowel Sounds, Soft Genitalia: Deferred Pelvic: Deferred Rectal: Deferred Extremities: No calf tenderness, Normal capillary refill, Normal inspection, Normal range of motion, Non-tender, No pedal edema Musculoskeletal : Apperance: Normal Neurologic: Alert, No Motor Deficits, Normal Affect, Normal Mood, No Sensory Deficits Cerebellar Function: Normal Reflexes: Normal Skin: Dry, Normal Color, Warm Lymphatic: No Adenopathy Was a procedure done? Was a procedure done?: No EENT DIFF Eye: Other Sore Throat: Streptococcal, Viral Pharyngitis, URI X-Ray, Labs, Meds, VS Vital Signs Date Time Temp Pulse Resp B/P (MAP) Pulse Ox O2 Delivery O2 Flow Rate FiO2 06/09/24 10:18 84 19 96 Room Air 06/09/24 10:18 97.7 84 19 150/97 (114) 96 97.7 06/09/24 09:54 97.7 84 19 150/97 (114) 96 97.7 Current Medications Medications (Trade) Dose Ordered Sig/Sergio Route Start Time Stop Time Status Last Admin Methylprednisolone Sodium Succinate (Solu Medrol) 125 mg ONCE ONCE IM 06/09/24 10:30 06/09/24 10:31 DC 06/09/24 10:35 Ketorolac Tromethamine (Toradol Injection) 60 mg ONCE ONCE IM 06/09/24 10:30 06/09/24 10:31 DC 06/09/24 10:36 X-Ray, Labs, Meds, VS Comment After ROS and physical examination there were no red flags. Findings consistent with cervical lymphadenitis and patient was given reassurance for her symptoms. Advised that the sour sitting taste may be due to the bacterial infection however she is currently on the current therapy and advised to complete the entire course even if the symptoms resolve. Also recommended warm fluids with the alignment on a, salt water gargles and [id number] Tylenol or ibuprofen for pain Return precautions discussed if symptoms do not improve and patient agreed to plan Time of 1ST Reevaluation: 11:00 Reevaluation 1ST: Improved Patient Education/Counseling: Diagnosis, Treatment Family Education/Counseling: Diagnosis, Treatment Departure 1 Departure Time of Disposition: 11:00 Impression: Primary Impression: Cervical lymphadenitis Disposition: 01 HOME / SELF CARE / HOMELESS Condition: Stable e-Prescriptions Acetaminophen (Acetaminophen) 500 Mg Tab 500 MG PO Q6HP PRN for 10 Days, #40 TAB 0 Refills Prov: DURAN PRITCHARD NP 06/09/24 Discharged With: Self Critical Care Note Critical Care Time?: No Stability Stability form required: No Heart Score Heart Score: Heart Score Response (Comments) Value History N/A 0 EKG N/A 0 Age N/A 0 Risk Factors N/A 0 Troponin N/A 0 Total 0 DURAN PRITCHARD NP Jun 09, 2024 11:01
== END 2024-06-09 11:10 | disposition home or self-care (01) ==
LOC: ER 09:43
DX: I88.9 Nonspecific lymphadenitis, unspecified (principal); Z90.49 Acquired absence of other specified parts of digestive tract; Z79.1 Long term (current) use of non-steroidal anti-inflammatories (NSAID); Z79.899 Other long term (current) drug therapy
CPT/HCPCS: 96372; 99284; J1885; J2919

== ENCOUNTER 2024-06-11 09:18 | Inpatient (IN) | payer MEDICAID ==
[~2024-06-11] VITALS: Ht 175.3 cm; Wt 132.4 kg
[2024-06-11 00:32] VITALS: BP 103/70; PULSE 70; RESP 18; TEMP 98.3; O2SAT 99
[~2024-06-11 09:18] MED LIST changes: +ACET500T58 PO
--- NOTE | 2024-06-11 09:59 | ED.PDOC ---
History of Present Illness HPI Comments 54F presents to the Er w/ prior Hx of Cholecystectomy and Ovarian Cyst Sx which may be associated to the c/c if N/V/D. Pt reports that she has been to the hospital on sunday of 06/06/24 for N/ as well as UC yesterday for N/ and woke up this morning w/ /V/D. Denies chills, fever, N/V/D, SOB, CP or no other ass ociated symptom's, modifiers, recent injuries or sick contacts at this time. Chief Complaint: Nausea/Vomiting Time Seen by MD: 09:45 Primary Care Provider: KATE GABRIEL SUNDAY Reviewed Notes: Nurses Notes, Medications, Allergies Allergies: Coded Allergies: NO KNOWN ALLERGIES (Unverified , 06/06/24) Home Meds Active Scripts Acetaminophen (Acetaminophen) 500 Mg Tab, 500 MG PO Q6HP PRN for 10 Days, #40 TAB 0 Refills Prov:DURAN PRITCHARD PREPARATION ROOM WORKER 06/09/24 Clindamycin Hcl (Clindamycin Hcl) 300 Mg Cap, 300 MG PO QID for 10 Days, #40 CAP Prov:ENRIKE RIOS 06/06/24 Ibuprofen (Ibuprofen) 800 Mg Tab, 1 TAB PO TID, #30 TAB Prov:ENRIKE RIOS 06/06/24 Information Source: Patient Mode of Arrival: Ambulatory Severity: Moderate Timing: Days Duration: Since onset, Days Prehospital treatment: None Past Medical History PAST MEDICAL HISTORY: Denies Surgical History: Cholecystectomy Surgical History (Other): Ovarian Cyst Sx ACCOUNTS PAYABLE ANALYST History: No Pertinent ACCOUNTS PAYABLE ANALYST History Family History Family History: Reviewed,noncontributory to illness, Unknown Social History Smoker: Non-Smoker Alcohol: Denies ETOH Use Drugs: Denies Drug Use Lives In: Home Constitutional: denies: chills, diaphoresis, fatigue, fever, malaise, sweats, weakness, others EENTM: denies: blurred vision, double vision, ear bleeding, ear discharge, ear drainage, ear pain, ear ringing, eye pain, eye redness, hearing loss, mouth pain, mouth swelling, nasal discharge, nose bleeding, nose congestion, nose vasu n, photophobia, tearing, throat pain, throat swelling, voice changes, others Respiratory: denies: cough, hemoptysis, orthopnea, SOB at rest, shortness of breath, SOB with excertion, stridor, wheezing, others Cardiovascular: denies: chest pain, dizzy spells, diaphoresis, Dyspnea on exertion, edema, irregular heart beat, left arm pain, lightheadedness, palpitations, PND, syncope, others Gastrointestinal: reports: diarrhea, nausea, vomiting; denies: abdomen distended, abdominal pain, blood streaked bowels, constipated, dysphagia, difficulty swallowing, hematemesis, melena, poor appetite, poor fluid intake, rectal bleeding, rectal pain, others Genitourinary: denies: abnormal vagina bleeding, burning, dyspareunia, dysuria, flank pain, frequency, hematuria, incontinence, pain, , vagina discharge, urgency, others Neurological: denies: dizziness, fainting, headache, left sided numbness, left sided weakness, numbness, paresthesia, pre-existing deficit, right sided n umbness, right sided weakness, seizure, speech problems, tingling, tremors, weakness, others Musculoskeletal: denies: back pain, gout, joint pain, joint swelling, muscle pain, muscle stiffness, neck pain, others Integumetry: denies: bruises, change in color, change in hair/nails, dryness, laceration, lesions, lumps, rash, wounds, others Allergic/Immunocompromised: denies: Difficulty Healing, Frequent Infections, Hives, Itching, others Hematologic/Lymphatic: denies: anemia, blood clots, easy bleeding, easy bruising, swollen glands, others Endocrine: denies: excessive hunger, excessive sweating, excessive thirst, excessive urination, flushing, intolerance to cold, intolerance to heat, unexplained weight gain, unexplained weight loss, others Psychiatric: denies: anxiety, bipolar disorder, depression, hopeless, panic disorder, schizophrenia, sleepless, suicidal, others All Other Systems: Reviewed and Negative Physical Exam General Appearance: Moderate Distress, Normal HEENT: Normal ENT Inspection, Pharynx Normal, TMs Normal Neck: Full Range of Motion, Non-Tender, Normal, Normal Inspection Respiratory: Chest Non-Tender, Lungs Clear, No Accessory Muscle Use, No Respiratory Distress, Normal Breath Sounds Cardiovascular: No Edema, No JVD, No Murmur, No Gallop, Normal Peripheral Pulses, Regular Rate/Rhythm Breast Exam: Deferred Gastrointestinal: No Organomegaly, Non Tender, No Pulsatile Mass, Normal Bowel Sounds, Soft Genitalia: Deferred Pelvic: Deferred Rectal: Deferred Extremities: No calf tenderness, Normal capillary refill, Normal inspection, Normal range of motion, Non-tender, No pedal edema Musculoskeletal : Apperance: Normal Neurologic: Alert, lift driver II-XII nml as Tested, No Motor Deficits, Normal Affect, Normal Mood, No Sensory Deficits Cerebellar Function: Normal Reflexes: Normal Skin: Dry, Normal Color, Warm Peripheral Pulses: 3+ Radial (R), 3+ Radial (L) Lymphatic: No Adenopathy Was a procedure done? Was a procedure done?: No Differential Dx Considerations may include: Gastroenteritis Electrolyte imbalance X-Ray, Labs, Meds, VS Vital Signs Date Time Temp Pulse Resp B/P (MAP) Pulse Ox O2 Delivery O2 Flow Rate FiO2 06/11/24 10:15 78 14 95 Room Air* 0 21 06/11/24 10:14 98.3 78 14 103/67 (79) 95 98.3 06/11/24 09:40 97.6 84 18 117/78 (91) 95 97.6 Lab Test 06/11/24 09:49 06/11/24 09:41 Range/Units White Blood Count 8.5 4.4-10.8 10^3/uL Red Blood Count 4.96 4.0-5.20 10^6/uL Hemoglobin 16.0 12.2-16.2 g/dL Hematocrit 45.8 36.0-46.0 % Mean Corpuscular Volume 92.4 80.0-100.0 fL Mean Corpuscular Hemoglobin 32.3 H 28.0-32.0 pg Mean Corpuscular Hemoglobin Concent 35.0 32.0-36.0 g/dL Red Cell Distribution Width 13.5 11.8-14.3 % Platelet Count 330 140-450 10^3/uL Mean Platelet Volume 7.1 6.9-10.8 fL Neutrophils (%) (Auto) 58.8 37.0-80.0 % Lymphocytes (%) (Auto) 31.2 10.0-50.0 % Monocytes (%) (Auto) 7.7 0.0-12.0 % Eosinophils (%) (Auto) 1.8 0.0-7.0 % Basophils (%) (Auto) 0.5 0.0-2.0 % Neutrophils # (Auto) 5.0 1.6-8.6 10 ^3/uL Lymphocytes # (Auto) 2.7 0.4-5.4 10 ^3/uL Monocytes # (Auto) 0.7 0-1.3 10 ^3/uL Eosinophils # (Auto) 0.2 0-0.8 10 ^3/uL Basophils # (Auto) 0 0-0.2 10 ^3/uL Nucleated Red Blood Cells 0.1 % Sodium Level 141 136-145 mmol/L Potassium Level 4.0 3.5-5.1 mmol/L Chloride Level 108 H 98-107 mmol/L Carbon Dioxide Level 27 20-31 mmol/L Anion Gap 6 5-15 Blood Urea Nitrogen 17 9-23 mg/dL Creatinine 0.69 0.550-1.02 mg/dL Glomerular Filtration Rate Calc 104 >90 mL/min BUN/Creatinine Ratio 24.6 H 10.0-20.0 Serum Glucose 90 74-106 mg/dL Calcium Level 8.6 L 8.7-10.4 mg/dL Urine Color Light-yellow Yellow Urine Clarity Clear Clear Urine pH 5.5 5.0-9.0 Urine Specific [place] 1.016 1.001-1.035 Urine Protein Negative Negative Urine Ketones Negative Negative Urine Blood Negative Negative /uL Urine Nitrite Negative Negative Urine Bilirubin Negative Negative Urine Urobilinogen Normal Negative mg/dL Urine Leukocyte Esterase Negative Negative /uL Urine RBC 1 0 - 4 /hpf Urine Microscopic WBC < 1 0-5 /HPF Urine Squamous Epithelial Cells Few <5 /hpf Urine Bacteria None seen None Seen /hpf Urine Glucose Normal Normal mg/dL Patient alert. Complaining of nausea vomiting diarrhea. Has been having these symptoms for many days. Vitals stable. GI consultation. WBC within normal limits. Establish intravenous access. Was given fluids. GI consultation for colonoscopy. Reviewed history. Explained to the patient. Continue cardiac monitoring. Time of 1ST Reevaluation: 10:15 Reevaluation 1ST: Unchanged Patient Education/Counseling: Diagnosis, Treatment, Prognosis Family Education/Counseling: No Family Present Departure 1 Departure Time of Disposition: 11:13 Impression: Primary Impression: Gastroenteritis Disposition: ADMITTED INPATIENT Admit to: Med Surg Condition: Guarded Critical Care Note Critical Care Time?: No Stability Stability form required: No Heart Score Heart Score: Heart Score Response (Comments) Value History N/A 0 EKG N/A 0 Age N/A 0 Risk Factors N/A 0 Troponin N/A 0 Total 0 I personally scribed for LEIA DOE MD ([email or web address]) on 06/11/24 at 09:59. Electronically submitted by Pawan Raymundo ([email or web address]). LEIA DOE MD Jun 11, 2024 09:59
[2024-06-11 10:07] LABS: Basophils # (auto) 0 10 ^3/uL (0-0.2); Basophils % (auto) 0.5 % (0.0-2.0); Eosinophils # (auto) 0.2 10 ^3/uL (0-0.8); Eosinophils % (auto) 1.8 % (0.0-7.0); Hematocrit 45.8 % (36.0-46.0); Lymphocytes # (auto) 2.7 10 ^3/uL (0.4-5.4); Lymphocytes % (auto) 31.2 % (10.0-50.0); Mean Corpuscular Hemoglobin 32.3 pg (28.0-32.0); Mean Corpuscular Volume 92.4 fL (80.0-100.0); Monocytes # (auto) 0.7 10 ^3/uL (0-1.3); Monocytes % (auto) 7.7 % (0.0-12.0); Neutrophils % (auto) 58.8 % (37.0-80.0); Nucleated Red Blood Cells % 0.1 %; Platelet Count (auto) 330 10^3/uL (140-450); Red Blood Cells 4.96 10^6/uL (4.0-5.20); Red Cell Distribution Width 13.5 % (11.8-14.3); White Blood Cell 8.5 10^3/uL (4.4-10.8)
[2024-06-11 10:15] VITALS: PULSE 78; RESP 14; O2SAT 95
[2024-06-11 10:20] LABS: Sodium 141 mmol/L (136-145)
[2024-06-11 10:21] LABS: Anion Gap 6 (5-15); Carbon Dioxide 27 mmol/L (20-31)
[2024-06-11 10:22] LABS: Calcium 8.6 mg/dL (8.7-10.4); Chloride 108 mmol/L (98-107)
[2024-06-11 10:26] LABS: BUN/Creatinine Ratio 24.6 (10.0-20.0); Blood Urea Nitrogen 17 mg/dL (9-23); Glucose 90 mg/dL (74-106)
[2024-06-11 10:44] LABS: Urine Bacteria None Seen /hpf (None Seen)
[2024-06-11 10:55] LABS: Urine Blood Negative /uL (Negative); Urine Clarity Clear (Clear); Urine Color Light-Yellow (Yellow); Urine Protein, UAD Negative (Negative); Urine Specific Gravity 1.016 (1.001-1.035); Urine Squamous Epithelial Cell FEW /hpf (<5); Urine Urobilinogen Normal (Negative); Urine WBC < 1 /HPF (0-5); Urine pH 5.5 (5.0-9.0)
[2024-06-11] MEDS: SODIUM CHLORIDE 0.9% 1,000 ML IV ONE (11:15)
[2024-06-11] MEDS: ONDANSETRON HCL 4 MG/2 ML VIAL IV ONE (11:15)
[2024-06-11 22:48] VITALS: PULSE 71; RESP 18; O2SAT 94
--- NOTE | 2024-06-11 23:16 | DVHHPRES ---
History of Present Illness Resident Creating Document: DEWAYNE BRIGGS Reason for Visit: RUQ pain History of Present Illness Patient is a 54-year-old female who presented to the ER with a chief complaint of right upper quadrant pain with radiation to right lower quadrant. Per patient, Pain has been going on for a while. She reported to ED on 06/06/2024 where a ultrasound showed Intrauterine device in the endometrial cavity with a normal sonographic appearance of the uterus and left ovary. Right ovary obscured due to overlying bowel gas. Patient was sent referred to [facility] for further care. There, she saw the physician who attempted to remove the IUD, but could not find the tread. Patient was sent home with pain medication and asked to follow up with her reese/mattress finisher. Unable to to tolerate this pain, Patient reported back to the ED today for worsening right flank pain and general feeling of unwell. Pain was associated with nausea, vomiting and diarrhea. She denies chills, fever, SOB, CP or no other associated symptom's, modifiers, recent injuries or sick contacts at this time. 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 Review of Systems Constitutional: malaise HEENT: Denies headache, ear pain, ear discharges, conjunctivitis, nasal discharge throat pain Cardiovascular: Denies chest pain, palpitation, orthopnea, PND, or pedal edema Respiratory: Steven shortness of breath, cough cough, sputum production, hemoptysis, GI: abdominal pain, nausea, vomiting, diarrhea, No hematemesis, hematochezia, : Denies frequency, urgency, hematuria, Endocrine: Denies unintentional weight gain or weight loss, feeling of hot flashes, Dean: Denies easy bruising, bleeding disorders, epistaxis Musculoskeletal: Denies joint pains, muscle aches Psych: No evidence of depression, jose, suicidal ideation Allergies: Coded Allergies: NO KNOWN ALLERGIES (Unverified , 06/06/24) Exam Vital Signs Vital Signs Date Time Temp Pulse Resp B/P (MAP) Pulse Ox O2 Delivery O2 Flow Rate FiO2 06/11/24 22:48 98.0 71 18 125/81 (96) 94 98.0 06/11/24 22:48 Room Air* 0 21 Exam General Appearance: Alert, Oriented X3, Cooperative, Morbidly obese female HEENT: Atraumatic, PERRLA, EOMI, Mucous membrane moist/pink Respiratory: Clear to auscultation, Normal air movement Cardiovascular: Regular rate, Normal S1, Normal S2, No murmurs, no chest wall tenderness Abdominal: Enlarged abdomen, tenderness in he RUQ and lower RLQ WITH some notable tenderness in the epigastrium. Extremities: Bilateral pitting Edema edema, Normal pulses, No tenderness/swelling Skin: No rashes, No breakdown, No significant lesion Neuro: Normal gait, Normal speech, Strength at 5/5 X4 ext, Normal tone, Sensation intact, Cranial nerves 3-12 NL, Reflexes 2+ Psych/Mental Status: Mental status NL, Mood NL Labs/Xrays Labs Test 06/11/24 09:49 06/11/24 09:41 Range/Units White Blood Count 8.5 4.4-10.8 10^3/uL Red Blood Count 4.96 4.0-5.20 10^6/uL Hemoglobin 16.0 12.2-16.2 g/dL Hematocrit 45.8 36.0-46.0 % Mean Corpuscular Volume 92.4 80.0-100.0 fL Mean Corpuscular Hemoglobin 32.3 H 28.0-32.0 pg Mean Corpuscular Hemoglobin Concent 35.0 32.0-36.0 g/dL Red Cell Distribution Width 13.5 11.8-14.3 % Platelet Count 330 140-450 10^3/uL Mean Platelet Volume 7.1 6.9-10.8 fL Neutrophils (%) (Auto) 58.8 37.0-80.0 % Lymphocytes (%) (Auto) 31.2 10.0-50.0 % Monocytes (%) (Auto) 7.7 0.0-12.0 % Eosinophils (%) (Auto) 1.8 0.0-7.0 % Basophils (%) (Auto) 0.5 0.0-2.0 % Neutrophils # (Auto) 5.0 1.6-8.6 10 ^3/uL Lymphocytes # (Auto) 2.7 0.4-5.4 10 ^3/uL Monocytes # (Auto) 0.7 0-1.3 10 ^3/uL Eosinophils # (Auto) 0.2 0-0.8 10 ^3/uL Basophils # (Auto) 0 0-0.2 10 ^3/uL Nucleated Red Blood Cells 0.1 % Sodium Level 141 136-145 mmol/L Potassium Level 4.0 3.5-5.1 mmol/L Chloride Level 108 H 98-107 mmol/L Carbon Dioxide Level 27 20-31 mmol/L Anion Gap 6 5-15 Blood Urea Nitrogen 17 9-23 mg/dL Creatinine 0.69 0.550-1.02 mg/dL Glomerular Filtration Rate Calc 104 >90 mL/min BUN/Creatinine Ratio 24.6 H 10.0-20.0 Serum Glucose 90 74-106 mg/dL Calcium Level 8.6 L 8.7-10.4 mg/dL Urine Color Light-yellow Yellow Urine Clarity Clear Clear Urine pH 5.5 5.0-9.0 Urine Specific [place] 1.016 1.001-1.035 Urine Protein Negative Negative Urine Ketones Negative Negative Urine Blood Negative Negative /uL Urine Nitrite Negative Negative Urine Bilirubin Negative Negative Urine Urobilinogen Normal Negative mg/dL Urine Leukocyte Esterase Negative Negative /uL Urine RBC 1 0 - 4 /hpf Urine Microscopic WBC < 1 0-5 /HPF Urine Squamous Epithelial Cells Few <5 /hpf Urine Bacteria None seen None Seen /hpf Urine Glucose Normal Normal mg/dL Assessment/Plan Assessment/Plan Retained IUD --> RUQ pain -> Cash Grain Grower consult --> Repeat CBC, PT/INR in the AM Mild metabolic Alkalosis --> Preferred Lactated ringer's Morbid obesity --> BMI: 42.8 --> Counseled pain on walking an exercise Bilateral pitting Edema rule out DVT --> Doppler negative --> BNP Pending Hypocalcemia --> Vitamin D DVT ruled out Goal of care discussed for more than 30 minutes, full code Case and plan discussed with Dr. Mackey Plan discussed with: Patient My Orders Orders - DEWAYNE BRIGGS RESIDENT Procedure Category Date Status Time Admit ADMIT 06/11/24 Transmitted 23:07 Code Status CODE 06/11/24 Transmitted 23:07 Vital Signs [facility] 06/11/24 Transmitted 23:07 Review Orders With [facility] 06/11/24 Transmitted Adm. 23:07 Npo (Nothing By DIET 06/12/24 Transmitted Mouth) Diet Breakfast Notify Of Changes [facility] 06/11/24 Transmitted From Base 23:07 Advance Directive [facility] 06/11/24 Transmitted 23:07 Patient Condition ORDERS 06/11/24 Transmitted 23:07 Allergies LIZZETH 06/11/24 Transmitted 23:07 Notify Md Of Changes LIZZETH 06/11/24 Transmitted From Base 23:07 Basic Metabolic Panel LAB 06/12/24 Verified 04:00 Complete Blood Count LAB 06/12/24 Verified 04:00 * Supervisor Train Operations Consultation CONS 06/11/24 Transmitted 23:07 Date of Service: Jun 11, 2024 Billing Provider: CORINNA MACKEY MD Common Visit Codes: 46975-[id number] INP/OBS CARE (HIGH) DEWAYNE BRIGGS RESIDENT Jun 11, 2024 23:16 CORINNA MACKEY MD Jun 12, 2024 11:06
[2024-06-11] MEDS ORDERED: MORPHINE SULFATE INJ 2 MG/ml SYRG IV PRN (23:30)
[2024-06-12] VITALS (9 sets, daily range): BP systolic 103–133; BP diastolic 59–84; PULSE 64–78; RESP 17–20; TEMP 97.7–98.3; O2SAT 92–99
[2024-06-12] MEDS: MORPHINE SULFATE INJ 2 MG/ml SYRG IV ONE (00:14)
--- NOTE | 2024-06-12 01:47 | DVH ---
Bilateral lower extremity venous duplex Clinical History: rule out DVT Comparison: None Technique: Duplex Doppler evaluation of the deep venous systems of both lower extremities from the common femora l veins to the popliteal veins including color Doppler and spectral/pulsed waveform analysis was perf ormed. Findings: RIGHT SIDE: The common femoral vein demonstrates appropriate compressibility and waveform variability. There is compressibility/patency of the great saphenous vein at the proximal thigh. The femoral vein demonstrates appropriate compressibility and waveform variability. The deep femoral vein demonstrates appropriate compressibility and waveform variability. The popliteal vein demonstrates appropriate compressibility and waveform variability. There is normal compressibility at the tibioperoneal trunk. LEFT SIDE: The common femoral vein demonstrates appropriate compressibility and waveform variability. There is compressibility/patency of the great saphenous vein at the proximal thigh. The femoral vein demonstrates appropriate compressibility and waveform variability. The deep femoral vein demonstrates appropriate compressibility and waveform variability. The popliteal vein demonstrates appropriate compressibility and waveform variability. There is normal compressibility at the tibioperoneal trunk. Impression: 1. No right or left femoropopliteal venous thrombosis.
[2024-06-12 06:40] LABS: Basophils # (auto) 0 10 ^3/uL (0-0.2); Basophils % (auto) 0.3 % (0.0-2.0); Eosinophils # (auto) 0.2 10 ^3/uL (0-0.8); Eosinophils % (auto) 3.1 % (0.0-7.0); Hemoglobin 14.5 g/dL (12.2-16.2); Lymphocytes # (auto) 3.5 10 ^3/uL (0.4-5.4); Lymphocytes % (auto) 44.4 % (10.0-50.0); Mean Corpuscular Hgb Conc. 34.4 g/dL (32.0-36.0); Mean Corpuscular Volume 93.1 fL (80.0-100.0); Monocytes # (auto) 0.7 10 ^3/uL (0-1.3); Monocytes % (auto) 9.2 % (0.0-12.0); Neutrophils # (auto) 3.4 10 ^3/uL (1.6-8.6); Nucleated Red Blood Cells % 0.1 %; Platelet Count (auto) 289 10^3/uL (140-450); Red Blood Cells 4.51 10^6/uL (4.0-5.20); Red Cell Distribution Width 13.3 % (11.8-14.3); White Blood Cell 7.9 10^3/uL (4.4-10.8)
[2024-06-12 06:50] LABS: Potassium 3.7 mmol/L (3.5-5.1); Sodium 143 mmol/L (136-145)
[2024-06-12 06:51] LABS: Anion Gap 7 (5-15); Carbon Dioxide 26 mmol/L (20-31)
[2024-06-12 06:56] LABS: BUN/Creatinine Ratio 18.5 (10.0-20.0); Blood Urea Nitrogen 10 mg/dL (9-23); Glucose 83 mg/dL (74-106)
[2024-06-12 07:04] LABS: Calcium 8.7 mg/dL (8.7-10.4); Chloride 110 mmol/L (98-107)
[2024-06-12 08:02] LABS: Alkaline Phosphatase 64 U/L (46-116); CRP High Sensitivity 0.08 mg/dL (<1.0); Total Protein 6.1 g/dL (5.7-8.2)
[2024-06-12 08:03] LABS: Albumin 3.6 g/dL (3.2-4.8); Aspartate Aminotransferase 34 U/L (13-40)
[2024-06-12 08:04] LABS: Alanine Aminotransferase 48 U/L (7-40); Bilirubin, Direct < 0.1 mg/dL (<0.3); Bilirubin, Total 0.2 mg/dL (0.2-1.0)
[2024-06-12 08:15] LABS: Erythrocyte Sedimentation Rate 11 mm/hr (0-20)
[2024-06-12] MEDS: HYDROcodone-ACET 5/325MG TAB PO PRN (11:22)
[2024-06-12] MEDS: SODIUM CHLORIDE 0.9% 1,000 ML IV SCH (11:22)
[2024-06-12] MEDS: CIPROFLOXACIN 400MG/200ML 200 ML IV SCH (11:22)
--- NOTE | 2024-06-12 11:29 | DVHPNRES ---
Progress Note Date Seen: Jun 12, 2024 Resident Creating Document: JONATAN GRAY RESIDENT Has the PT tested + for MRSA If YES, has PT been informed?: No Medical Necessity Reason Pt with a Central, PICC or Fol: No Subjective Review of Systems Patient is a 54-year-old female who presented to the ER with a chief complaint of right upper quadrant pain with radiation to right lower quadrant. Per patient, Pain has been going on for a while. She reported to ED on 06/06/2024 where a ultrasound showed Intrauterine device in the endometrial cavity with a normal sonographic appearance of the uterus and left ovary. Right ovary obscured due to overlying bowel gas. Patient was sent referred to for further care. There, she saw the physician who attempted to remove the IUD, but could not find the tread. Patient was sent home with pain medication and asked to follow up with her reese/document management consultant. Unable to to tolerate this pain, Patient reported back to the ED today for worsening right flank pain and general feeling of unwell. Pain was associated with nausea, vomiting and diarrhea. She denies chills, fever, SOB, CP or no other associated symptom's, modifiers, recent injuries or sick contacts at this time. 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 Vital Sign Date Time Temp Pulse Resp B/P (MAP) Pulse Ox O2 Delivery O2 Flow Rate FiO2 06/12/24 08:30 98.0 78 19 119/78 (92) 92 98.0 06/12/24 08:00 Room Air* 0 21 Total Intake and Output 06/11/24 06/11/24 06/12/24 15:00 23:00 07:00 Intake Total 1000 ml 0 ml Output Total 450 ml Balance 1000 ml -450 ml medications Current Medications Medications Dose Ordered Sig/Sergio Route Start Time Stop Time Status Last Admin Dose Admin Ciprofloxacin 200 ml @ 200 mls/hr Q12HR IV 06/12/24 10:30 06/12/24 11:22 200 MLS/HR Metronidazole 100 ml @ 100 mls/hr Q8HR IV 06/12/24 11:30 Sodium Chloride 1,000 ml @ 75 mls/hr [id number] IV 06/12/24 10:30 06/12/24 11:22 75 MLS/HR Acetaminophen/ Hydrocodone Bitart 1 tab Q6HPRN PRN PO 06/12/24 10:30 06/12/24 11:22 1 TAB Examination General Appearance: Alert, Oriented X3, Cooperative, Morbidly obese female HEENT: Atraumatic, PERRLA, EOMI, Mucous membrane moist/pink Respiratory: Clear to auscultation, Normal air movement Cardiovascular: Regular rate, Normal S1, Normal S2, No murmurs, no chest wall tenderness Abdominal: obese, no tenderness at palpation Extremities: Bilateral pitting Edema 1+ , Normal pulses, No tenderness/swelling Skin: No rashes, No breakdown, No significant lesion Neuro: Normal gait, Normal speech, Strength at 5/5 X4 ext, Normal tone, Sensation intact, Cranial nerves 3-12 NL, Reflexes 2+ Psych/Mental Status: Mental status NL, Mood NL laboratory and microbiology Laboratory Tests 06/12/24 05:23 Test 06/12/24 05:23 Range/Units Serum Glucose 83 74-106 mg/dL Problem List/Assessment/Plan Problem List/Assessment/Plan Acute gastroenteritis stool studies metronidazole + ciprofloxacin IV c diff studies stool studies iv fluids Retained IUD --> RUQ pain -> Caregivers Homecare consult Mild metabolic Alkalosis Morbid obesity --> BMI: 42.8 --> Counseled pain on walking an exercise Bilateral pitting Edema --> Doppler negative Hypocalcemia --> Vitamin D DVT ruled out Goal of care discussed for more than 30 minutes, full code Case and plan discussed with Dr. Hutchinson Plan discussed with: Patient, Other (rn) My Orders My Orders Orders - JONATAN GRAY RESIDENT Procedure Category Date Status Time Stool Wbc LAB 06/12/24 Logged 09:07 Stool Bacterial JESSY 06/12/24 Uncollected Culture 09:07 Stool Occult Blood LAB 06/12/24 Logged 09:07 Clostridium Difficile JESSY 06/12/24 Uncollected Toxin 09:07 Communication Order ORDERS 06/12/24 Transmitted 09:08 Ciprofloxacin PHA 06/12/24 In Process 400mg/200ml (Cipro Iv) 10:30 Metronidazole PHA 06/12/24 In Process 500mg/100ml (Flagyl 11:30 Sodium Chloride 0.9% PHA 06/12/24 In Process 10:30 Hydrocodone-Acet PHA 06/12/24 In Process 5/325mg Tab ([place] 10:30 JONATAN GRAY RESIDENT Jun 12, 2024 11:29
[2024-06-12] MEDS: metroNIDAZOLE 500MG/100ML 100 ML IV SCH (14:37)
[2024-06-13 05:00] VITALS: BP 113/72; PULSE 70; RESP 18; TEMP 97.7; O2SAT 93
[2024-06-13 05:16] LABS: Basophils # (auto) 0 10 ^3/uL (0-0.2); Basophils % (auto) 0.4 % (0.0-2.0); Eosinophils # (auto) 0.3 10 ^3/uL (0-0.8); Eosinophils % (auto) 3.7 % (0.0-7.0); Hemoglobin 14.9 g/dL (12.2-16.2); Lymphocytes # (auto) 3.6 10 ^3/uL (0.4-5.4); Lymphocytes % (auto) 42.8 % (10.0-50.0); Mean Corpuscular Hemoglobin 32.6 pg (28.0-32.0); Mean Corpuscular Hgb Conc. 35.6 g/dL (32.0-36.0); Mean Corpuscular Volume 91.7 fL (80.0-100.0); Monocytes # (auto) 0.7 10 ^3/uL (0-1.3); Monocytes % (auto) 7.7 % (0.0-12.0); Neutrophils # (auto) 3.8 10 ^3/uL (1.6-8.6); Neutrophils % (auto) 45.4 % (37.0-80.0); Nucleated Red Blood Cells % 0.1 %; Platelet Count (auto) 296 10^3/uL (140-450); Red Blood Cells 4.58 10^6/uL (4.0-5.20); White Blood Cell 8.4 10^3/uL (4.4-10.8)
[2024-06-13 05:38] LABS: Albumin 3.6 g/dL (3.2-4.8); Alkaline Phosphatase 62 U/L (46-116); Anion Gap 6 (5-15); Aspartate Aminotransferase 37 U/L (13-40); BUN/Creatinine Ratio 9.5 (10.0-20.0); Bilirubin, Total 0.4 mg/dL (0.2-1.0); Calcium 8.7 mg/dL (8.7-10.4); Carbon Dioxide 25 mmol/L (20-31); Glucose 92 mg/dL (74-106); Sodium 141 mmol/L (136-145); Total Protein 6.2 g/dL (5.7-8.2)
[2024-06-13 05:39] LABS: Alanine Aminotransferase 48 U/L (7-40); Blood Urea Nitrogen 6 mg/dL (9-23); Chloride 110 mmol/L (98-107)
[2024-06-13 09:00] VITALS: BP 126/73; PULSE 62; RESP 18; TEMP 97.6; O2SAT 91
--- NOTE | 2024-06-13 13:51 | DVHINCON2 ---
Date of service: Jun 13, 2024 Referring Physician hospitalist Reason for Consultation possible perforated iud History of Present Illness the pt is admitted for gastroenteritis,she had a ct which showed possible perforated iud .the sono revealed normal intrauterine iud.[facility] an a ttempt was made to have iud removed but string was not visualized.her last pap was in 2019 Past Medical History hep c,anxiety Past Surgical History cholecystectomy,ovarian cystectomy Family History na Social History na Allergies: Coded Allergies: NO KNOWN ALLERGIES (Unverified , 06/06/24) Home Meds Active Scripts Acetaminophen (Acetaminophen) 500 Mg Tab, 500 MG PO Q6HP PRN for 10 Days, #40 TAB 0 Refills Prov:DURAN PRITCHARD [employer] CONSULTANT 06/09/24 Clindamycin Hcl (Clindamycin Hcl) 300 Mg Cap, 300 MG PO QID for 10 Days, #40 CAP Prov:ENRIKE RIOS 06/06/24 Ibuprofen (Ibuprofen) 800 Mg Tab, 1 TAB PO TID, #30 TAB Prov:ENRIKE RIOS 06/06/24 Review of Systems c/w hpi Vital Signs Vital Signs Date Time Temp Pulse Resp B/P (MAP) Pulse Ox O2 Delivery O2 Flow Rate FiO2 06/13/24 09:00 97.6 62 18 126/73 (90) 91 97.6 06/13/24 08:00 Room Air* 0 21 Physical Exam heent -wnl cv rrr lungs cta abd soft,no rigidity or rebound pelvic- vag nl,cx nl no string noted ,uterus nt and nl size,adenxa nt Labs/Diagnostic Data Labs Test 06/13/24 04:34 06/12/24 12:41 06/12/24 05:23 06/11/24 09:41 Range/Units White Blood Count 8.4 4.4-10.8 10^3/uL Red Blood Count 4.58 4.0-5.20 10^6/uL Hemoglobin 14.9 12.2-16.2 g/dL Hematocrit 42.0 36.0-46.0 % Mean Corpuscular Volume 91.7 80.0-100.0 fL Mean Corpuscular Hemoglobin 32.6 H 28.0-32.0 pg Mean Corpuscular Hemoglobin Concent 35.6 32.0-36.0 g/dL Red Cell Distribution Width 13.0 11.8-14.3 % Platelet Count 296 140-450 10^3/uL Mean Platelet Volume 7.0 6.9-10.8 fL Neutrophils (%) (Auto) 45.4 37.0-80.0 % Lymphocytes (%) (Auto) 42.8 10.0-50.0 % Monocytes (%) (Auto) 7.7 0.0-12.0 % Eosinophils (%) (Auto) 3.7 0.0-7.0 % Basophils (%) (Auto) 0.4 0.0-2.0 % Neutrophils # (Auto) 3.8 1.6-8.6 10 ^3/uL Lymphocytes # (Auto) 3.6 0.4-5.4 10 ^3/uL Monocytes # (Auto) 0.7 0-1.3 10 ^3/uL Eosinophils # (Auto) 0.3 0-0.8 10 ^3/uL Basophils # (Auto) 0 0-0.2 10 ^3/uL Nucleated Red Blood Cells 0.1 % Sodium Level 141 136-145 mmol/L Potassium Level 4.0 3.5-5.1 mmol/L Chloride Level 110 H 98-107 mmol/L Carbon Dioxide Level 25 20-31 mmol/L Anion Gap 6 5-15 Blood Urea Nitrogen 6 L 9-23 mg/dL Creatinine 0.63 0.550-1.02 mg/dL Glomerular Filtration Rate Calc 107 >90 mL/min BUN/Creatinine Ratio 9.5 L 10.0-20.0 Serum Glucose 92 74-106 mg/dL Calcium Level 8.7 8.7-10.4 mg/dL Total Bilirubin 0.4 0.2-1.0 mg/dL Aspartate Amino Transferase (AST) 37 13-40 U/L Alanine Aminotransferase (ALT) 48 H 7-40 U/L Alkaline Phosphatase 62 46-116 U/L Total Protein 6.2 5.7-8.2 g/dL Albumin 3.6 3.2-4.8 g/dL Stool Occult Blood Negative Negative Stool Occult Blood Sample #3 Negative Stool for White Cells None seen Erythrocyte Sedimentation Rate 11 0-20 mm/hr Direct Bilirubin < 0.1 <0.3 mg/dL C-Reactive Protein High Sensitivity 0.08 <1.0 mg/dL B-Type Natriuretic Peptide 9.40 0-100 pg/mL Urine Color Light-yellow Yellow Urine Clarity Clear Clear Urine pH 5.5 5.0-9.0 Urine Specific [place] 1.016 1.001-1.035 Urine Protein Negative Negative Urine Ketones Negative Negative Urine Blood Negative Negative /uL Urine Nitrite Negative Negative Urine Bilirubin Negative Negative Urine Urobilinogen Normal Negative mg/dL Urine Leukocyte Esterase Negative Negative /uL Urine RBC 1 0 - 4 /hpf Urine Microscopic WBC < 1 0-5 /HPF Urine Squamous Epithelial Cells Few <5 /hpf Urine Bacteria None seen None Seen /hpf Urine Glucose Normal Normal mg/dL Primary Diagnosis iud in uterus with nonvisualized string 2' Diagnosis/Comorbidities hepc,gstroenteritis Plan supportive care fu out pt for pap will sign off thank you Plan discussed with: Patient Visit Coding OBGYN Date of Service: Jun 13, 2024 Billing Provider: CHRISTINE MONTEZ DO STRUCTURAL WELDER Common Visit Codes: [id number] INP/OBS CARE (HIGH) STRUCTURAL WELDER Consultation Codes: [id number] CONSULT <110MIN CHRISTINE MONTEZ DO Jun 13, 2024 13:51
[2024-06-13] MEDS ORDERED: CIPR500T4 PO (14:44)
[2024-06-13] MEDS ORDERED: METR-344 PO (14:44)
[2024-06-13] MEDS ORDERED: DICY10CA PO (15:00)
--- NOTE | 2024-06-13 15:00 | DVHDSRES ---
Discharge Summary Date of Admission Resident Creating Document: JONATAN GRAY RESIDENT Jun 11, 2024 at 23:07 Date of Discharge: Jun 13, 2024 Admitting Diagnosis Intractable abdominal pain Labs/Diagnostic Data: Laboratory Results Test 06/13/24 04:34 06/12/24 12:41 06/12/24 05:23 06/11/24 09:41 White Blood Count 8.4 10^3/uL (4.4-10.8) Red Blood Count 4.58 10^6/uL (4.0-5.20) Hemoglobin 14.9 g/dL (12.2-16.2) Hematocrit 42.0 % (36.0-46.0) Mean Corpuscular Volume 91.7 fL (80.0-100.0) Mean Corpuscular Hemoglobin 32.6 pg (28.0-32.0) Mean Corpuscular Hemoglobin Concent 35.6 g/dL (32.0-36.0) Red Cell Distribution Width 13.0 % (11.8-14.3) Platelet Count 296 10^3/uL (140-450) Mean Platelet Volume 7.0 fL (6.9-10.8) Neutrophils (%) (Auto) 45.4 % (37.0-80.0) Lymphocytes (%) (Auto) 42.8 % (10.0-50.0) Monocytes (%) (Auto) 7.7 % (0.0-12.0) Eosinophils (%) (Auto) 3.7 % (0.0-7.0) Basophils (%) (Auto) 0.4 % (0.0-2.0) Neutrophils # (Auto) 3.8 10 ^3/uL (1.6-8.6) Lymphocytes # (Auto) 3.6 10 ^3/uL (0.4-5.4) Monocytes # (Auto) 0.7 10 ^3/uL (0-1.3) Eosinophils # (Auto) 0.3 10 ^3/uL (0-0.8) Basophils # (Auto) 0 10 ^3/uL (0-0.2) Nucleated Red Blood Cells 0.1 % Sodium Level 141 mmol/L (136-145) Potassium Level 4.0 mmol/L (3.5-5.1) Chloride Level 110 mmol/L (98-107) Carbon Dioxide Level 25 mmol/L (20-31) Anion Gap 6 (5-15) Blood Urea Nitrogen 6 mg/dL (9-23) Creatinine 0.63 mg/dL (0.550-1.02) Glomerular Filtration Rate Calc 107 mL/min (>90) BUN/Creatinine Ratio 9.5 (10.0-20.0) Serum Glucose 92 mg/dL (74-106) Calcium Level 8.7 mg/dL (8.7-10.4) Total Bilirubin 0.4 mg/dL (0.2-1.0) Aspartate Amino Transferase (AST) 37 U/L (13-40) Alanine Aminotransferase (ALT) 48 U/L (7-40) Alkaline Phosphatase 62 U/L (46-116) Total Protein 6.2 g/dL (5.7-8.2) Albumin 3.6 g/dL (3.2-4.8) Stool Occult Blood Negative (Negative) Stool Occult Blood Sample #3 (Negative) Stool for White Cells None seen Erythrocyte Sedimentation Rate 11 mm/hr (0-20) Direct Bilirubin < 0.1 mg/dL (<0.3) C-Reactive Protein High Sensitivity 0.08 mg/dL (<1.0) B-Type Natriuretic Peptide 9.40 pg/mL (0-100) Urine Color Light-yellow (Yellow) Urine Clarity Clear (Clear) Urine pH 5.5 (5.0-9.0) Urine Specific [place] 1.016 (1.001-1.035) Urine Protein Negative (Negative) Urine Ketones Negative (Negative) Urine Blood Negative /uL (Negative) Urine Nitrite Negative (Negative) Urine Bilirubin Negative (Negative) Urine Urobilinogen Normal mg/dL (Negative) Urine Leukocyte Esterase Negative /uL (Negative) Urine RBC 1 /hpf (0 - 4) Urine Microscopic WBC < 1 /HPF (0-5) Urine Squamous Epithelial Cells Few /hpf (<5) Urine Bacteria None seen /hpf (None Seen) Urine Glucose Normal mg/dL (Normal) Other Laboratory Tests 06/13/24 04:34 Brief Hx & Hospital Course: A 54-year-old female with a history of Hepatitis C, prior cholecystectomy, hypertension, and heart disease presented with right upper quadrant pain radiating to the right lower quadrant. Imaging confirmed a retained intrauterine device (IUD) with a nonvisualized string and myometrial penetration. She also developed acute gastroenteritis with nausea and diarrhea, requiring antibiotic treatment. Additional findings included mild metabolic alkalosis, bilateral pitting edema with a negative Doppler for DVT Pain control and supportive care were provided, and she was evaluated by gynecology for the retained IUD, with outpatient follow-up recommended. During hospitalization, she was treated with ciprofloxacin and metronidazole for acute gastroenteritis. Her pain improved, and she was deemed stable for discharge. She was advised to continue ciprofloxacin and metronidazole as prescribed, take dicyclomine as needed for pain, and follow up with gynecology for further management of the retained IUD. She was also counseled on weight management and encouraged to monitor for worsening symptoms, including persistent pain, fever, or worsening gastrointestinal symptoms, requiring emergent evaluation. General Appearance: Alert, Oriented X3, Cooperative, Morbidly obese female HEENT: Atraumatic, PERRLA, EOMI, Mucous membrane moist/pink Respiratory: Clear to auscultation, Normal air movement Cardiovascular: Regular rate, Normal S1, Normal S2, No murmurs, no chest wall tenderness Abdominal: obese, no tenderness at palpation Extremities: Bilateral pitting Edema 1+ , Normal pulses, No tenderness/swelling Skin: No rashes, No breakdown, No significant lesion Neuro: Normal gait, Normal speech, Strength at 5/5 X4 ext, Normal tone, Sensation intact, Cranial nerves 3-12 NL, Reflexes 2+ Psych/Mental Status: Mental status NL, Mood NL Case discussed with Dr Hutchinson Consults/Reason for consult tobacco wrapping machine tender due to IUD retained Operations or Procedures Bilateral lower extremity venous duplex Clinical History: rule out DVT Comparison: None Technique: Duplex Doppler evaluation of the deep venous systems of both lower extremities from the common femoral veins to the popliteal veins including color Doppler and spectral/pulsed waveform analysis was performed. Findings: RIGHT SIDE: The common femoral vein demonstrates appropriate compressibility and waveform variability. There is compressibility/patency of the great saphenous vein at the proximal thigh. The femoral vein demonstrates appropriate compressibility and waveform variability. The deep femoral vein demonstrates appropriate compressibility and waveform variability. The popliteal vein demonstrates appropriate compressibility and waveform variability. There is normal compressibility at the tibioperoneal trunk. LEFT SIDE: The common femoral vein demonstrates appropriate compressibility and waveform variability. There is compressibility/patency of the great saphenous vein at the proximal thigh. The femoral vein demonstrates appropriate compressibility and waveform variability. The deep femoral vein demonstrates appropriate compressibility and waveform variability. The popliteal vein demonstrates appropriate compressibility and waveform variability. There is normal compressibility at the tibioperoneal trunk. Impression: 1. No right or left femoropopliteal venous thrombosis. Procedure: CT CT AB PEL WO CON-NO ORAL OR IV 06/07/2024 10:42 AM Indication: RIGHT FLANK PAIN Comparison Study: None Technique: Axial images were obtained and reformatted in coronal and sagittal planes. All CT scans at this medical facility are performed using dose modulation techniques as appropriate to a performed exam including the following: Automated exposure control was utilized; adjustment of the MA and/or KV according to patient size; and use of iterative reconstruction technique. CT Dose: CTDI volume is 25 mGy. Dose-length product is 1360.7 mGy*cm FINDINGS: Lower Chest: Unremarkable. Hepatobiliary: Hepatic steatosis. Gallbladder is surgically absent. Spleen: Unremarkable. Pancreas: Unremarkable. Adrenal Glands: Unremarkable. tract: The kidneys are normal in size bilaterally without hydronephrosis or nephrolithiasis. The urinary bladder is unremarkable. GI tract: The stomach is grossly normal in appearance. No evidence of small bowel obstruction. The large bowel is unremarkable. The appendix is normal. Lymphatics: No mesenteric, retroperitoneal or periportal lymphadenopathy. Vasculature: Aorta is normal in caliber. Scattered calcified plaques are noted. Pelvic Organs: Anteverted uterus. An IUD is seen that is tilted to the right penetrating uterine fundus with the tip of the left arm extending beyond the serosa. A 2.7 cm simple appearing pelvic cyst is seen on the right lateral aspect of the uterine cervix likely a peritoneal inclusion cyst. Bones/soft tissues: No acute abnormality. Degenerative changes of the lumbar spine noted. Small fat-containing umbilical hernia. Moderate chronic appearing depression of the superior endplate of T12 with approximately 50% loss of height centrally without retropulsion. Subcentimeter sclerotic focus noted in the right pubic body that may represent a benign bone island in the absence of known malignancy. Other: None. IMPRESSION: 1. No CT evidence of acute abnormality in the abdomen and pelvis. Specifically, no evidence of hydronephrosis, hydroureter or ureterolithiasis. The appendix is normal. 2. Myometrial penetration of the IUD. 3. Hepatic steatosis. Condition at Discharge: Stable Final Diagnosis/Problems List Intractable abdominal pain Acute gastroenteritis Retained IUD Mild metabolic Alkalosis Morbid obesity Bilateral pitting Edema DVT ruled out Discharge Disposition: Home Discharge Instruct/Medications Diet: Consistent carbohydrate, Cardiac 2g Na,low cholest Activity: No Restrictions, As Tolerated Follow Up/Referral: f/u dc clinic and tobacco wrapping machine tender Medications: see prescription Discharge Statement: "Patient was advised to return to the ER or call 911 if any headaches, dizziness, shortness of breath, chest pain, abdominal pain, bleeding, fevers, or worsening of medical condition. Patient was counseled about treatment plan, medications, possible side effects, patientverbalized understanding. All questions were answered to the best of my ability. This discharge took greater then 30 minutes in planning, reviewing documentation, counseling the patient, and discussing with other team members." ASSESSMENT ASSESSMENT Assessment acute gastroenteritis iud in myometrium JONATAN GRAY RESIDENT Jun 13, 2024 15:00
== END 2024-06-13 15:32 | disposition home or self-care (01) | DRG 466 ==
LOC: ER 09:18 → OVERFLOW 23:07 → WEST WING 23:15
PROVIDERS: ADMIT Internal Medicine; ATTEND Internal Medicine
DX: T83.89XA Other specified complication of genitourinary prosthetic devices, implants and grafts, initial encounter (principal); E87.3 Alkalosis; E83.51 Hypocalcemia; K52.9 Noninfective gastroenteritis and colitis, unspecified; E66.01 Morbid (severe) obesity due to excess calories; Y83.8 Other surgical procedures as the cause of abnormal reaction of the patient, or of later complication, without mention of misadventure at the time of the procedure; Z90.49 Acquired absence of other specified parts of digestive tract; Z79.899 Other long term (current) drug therapy; Z68.41 Body mass index [BMI] 40.0-44.9, adult
CPT/HCPCS: 36415; 80048; 80053; 80076; 81001; 82270; 83880; 85025; 85048; 85652; 86141; 93970; 96361; 96374; G0378; J2405; J3490

== ENCOUNTER 2024-06-30 12:41 | Emergency (ER) | payer MEDICAID ==
[~2024-06-30] VITALS: Ht 175.3 cm; Wt 131.6 kg
[~2024-06-30 12:41] MED LIST changes: +CIPR500T4 PO; +DICY10CA PO; +METR-344 PO
--- NOTE | 2024-06-30 13:01 | ED.PDOC ---
History of Present Illness HPI Comments 54 y.o female presents to the ED for a chief complaint of right upper quadrant/breast pain that started 4 days ago. Patient describes pain as sharp, constant, radiating to her back and rating a 10/10 on the pain scale. Patient was seen at [facility] days ago, had an US done resulting normal and was given pain medication that did not relief her pain. Patient denies any nausea, vomiting, diarrhea, fever, chills, bleeding, or dysuria. Patient reports tobacco use. No allergies. Chief Complaint: Breast pain Time Seen by MD: 12:50 Primary Care Provider: KATE GABRIEL SUNDAY Reviewed Notes: Nurses Notes, Medications, Allergies Allergies: Coded Allergies: NO KNOWN ALLERGIES (Unverified , 06/06/24) Home Meds Active Scripts Dicyclomine Hcl (BENTYL CAPSULE) 10 Mg Cp, 1 CAP PO TID for 10 Days, #90 CAP 3 Refills Prov:JONATAN GRAY 06/13/24 Metronidazole (Flagyl) 500 Mg Tab, 500 MG PO BID for 7 Days, #14 TAB Prov:JONATAN GRAY 06/13/24 Ciprofloxacin Hcl (Ciprofloxacin Hcl) 500 Mg Tab, 1 TAB PO BID for 7 Days, #14 TAB Prov:JONATAN GRAY 06/13/24 Acetaminophen (Acetaminophen) 500 Mg Tab, 500 MG PO Q6HP PRN for 10 Days, #40 TAB 0 Refills Prov:DURAN PRITCHARD NP 06/09/24 Clindamycin Hcl (Clindamycin Hcl) 300 Mg Cap, 300 MG PO QID for 10 Days, #40 CAP Prov:ENRIKE RIOS 06/06/24 Ibuprofen (Ibuprofen) 800 Mg Tab, 1 TAB PO TID, #30 TAB Prov:ENRIKE RIOS 06/06/24 Information Source: Patient Mode of Arrival: Ambulatory Severity: Moderate Timing: Days (4) Duration: Since onset Past Medical History PAST MEDICAL HISTORY: Liver Surgical History: Cholecystectomy Surgical History (Other): ovarian cyst removal 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 History: Ovarian Cysts, Other (breast cysts ) Family History Family History: Reviewed,noncontributory to illness, Unknown Social History Smoker: Non-Smoker Alcohol: Denies ETOH Use Drugs: Denies Drug Use Lives In: Home Constitutional: denies: chills, diaphoresis, fatigue, fever, malaise, sweats, weakness, others EENTM: denies: blurred vision, double vision, ear bleeding, ear discharge, ear drainage, ear pain, ear ringing, eye pain, eye redness, hearing loss, mouth pain, mouth swelling, nasal discharge, nose bleeding, nose congestion, nose pain, photophobia, tearing, throat pain, throat swelling, voice changes, others Respiratory: denies: cough, hemoptysis, orthopnea, SOB at rest, shortness of breath, SOB with excertion, stridor, wheezing, others Cardiovascular: denies: chest pain, dizzy spells, diaphoresis, Dyspnea on exertion, edema, irregular heart beat, left arm pain, lightheadedness, palpitations, PND, syncope, others Gastrointestinal: reports: abdominal pain; denies: abdomen distended, blood streaked bowels, constipated, diarrhea, dysphagia, difficulty swallowing, hematemesis, melena, nausea, poor appetite, poor fluid intake, rectal bleeding, rectal pain, vomiting, others Genitourinary: denies: abnormal vagina bleeding, burning, dyspareunia, dysuria, flank pain, frequency, hematuria, incontinence, pain, , vagina discharge, urgency, others Neurological: denies: dizziness, fainting, headache, left sided numbness, left sided weakness, numbness, paresthesia, pre-existing deficit, right sided numbness, right sided weakness, seizure, speech problems, tingling, tremors, weakness, others Musculoskeletal: denies: back pain, gout, joint pain, joint swelling, muscle pain, muscle stiffness, neck pain, others Integumetry: denies: bruises, change in color, change in hair/nails, dryness, laceration, lesions, lumps, rash, wounds, others Allergic/Immunocompromised: denies: Difficulty Healing, Frequent Infections, Hives, Itching, others Hematologic/Lymphatic: denies: anemia, blood clots, easy bleeding, easy bruising, swollen glands, others Endocrine: denies: excessive hunger, excessive sweating, excessive thirst, excessive urination, flushing, intolerance to cold, intolerance to heat, unexplained weight gain, unexplained weight loss, others Psychiatric: denies: anxiety, bipolar disorder, depression, hopeless, panic disorder, schizophrenia, sleepless, suicidal, others All Other Systems: Reviewed and Negative Physical Exam General Appearance: No Apparent Distress, Obese HEENT: Normal ENT Inspection, Pharynx Normal, TMs Normal Neck: Full Range of Motion, Non-Tender, Normal, Normal Inspection Respiratory: Chest Non-Tender, Lungs Clear, No Accessory Muscle Use, No Respiratory Distress, Normal Breath Sounds Cardiovascular: No Edema, No JVD, No Murmur, No Gallop, Normal Peripheral Pulses, Regular Rate/Rhythm Breast Exam: Deferred Gastrointestinal: No Organomegaly, Non Tender, No Pulsatile Mass, Normal Bowel Sounds, Soft Genitalia: Deferred Pelvic: Deferred Rectal: Deferred Extremities: No calf tenderness, Normal capillary refill, Normal inspection, Normal range of motion, Non-tender, No pedal edema Musculoskeletal : Apperance: Normal Neurologic: Alert, personal assistant II-XII nml as Tested, No Motor Deficits, Normal Affect, Normal Mood, No Sensory Deficits Cerebellar Function: Normal Reflexes: Normal Skin: Dry, Normal Color, Warm Lymphatic: No Adenopathy Was a procedure done? Was a procedure done?: No Differential Dx Considerations may include: Abdominal pain, appendicitis, electrolyte imbalance, UTI X-Ray, Labs, Meds, VS Vital Signs Date Time Temp Pulse Resp B/P (MAP) Pulse Ox O2 Delivery O2 Flow Rate FiO2 06/30/24 13:08 97.7 86 18 103/80 (88) 97 97.7 Lab Test 06/30/24 13:34 06/30/24 13:22 Range/Units Urine Color Light-yellow Yellow Urine Clarity Clear Clear Urine pH 5.5 5.0-9.0 Urine Specific [place] 1.011 1.001-1.035 Urine Protein Negative Negative Urine Ketones Negative Negative Urine Blood Negative Negative /uL Urine Nitrite Negative Negative Urine Bilirubin Negative Negative Urine Urobilinogen Normal Negative mg/dL Urine Leukocyte Esterase Negative Negative /uL Urine RBC None seen 0 - 4 /hpf Urine Microscopic WBC < 1 0-5 /HPF Urine Squamous Epithelial Cells None seen <5 /hpf Urine Bacteria None seen None Seen /hpf Urine Glucose Normal Normal mg/dL White Blood Count 11.6 H 4.4-10.8 10^3/uL Red Blood Count 4.93 4.0-5.20 10^6/uL Hemoglobin 15.7 12.2-16.2 g/dL Hematocrit 45.5 36.0-46.0 % Mean Corpuscular Volume 92.4 80.0-100.0 fL Mean Corpuscular Hemoglobin 31.9 28.0-32.0 pg Mean Corpuscular Hemoglobin Concent 34.6 32.0-36.0 g/dL Red Cell Distribution Width 13.4 11.8-14.3 % Platelet Count 406 140-450 10^3/uL Mean Platelet Volume 7.3 6.9-10.8 fL Neutrophils (%) (Auto) 61.1 37.0-80.0 % Lymphocytes (%) (Auto) 29.0 10.0-50.0 % Monocytes (%) (Auto) 6.8 0.0-12.0 % Eosinophils (%) (Auto) 1.9 0.0-7.0 % Basophils (%) (Auto) 1.2 0.0-2.0 % Neutrophils # (Auto) 7.1 1.6-8.6 10 ^3/uL Lymphocytes # (Auto) 3.4 0.4-5.4 10 ^3/uL Monocytes # (Auto) 0.8 0-1.3 10 ^3/uL Eosinophils # (Auto) 0.2 0-0.8 10 ^3/uL Basophils # (Auto) 0.1 0-0.2 10 ^3/uL Nucleated Red Blood Cells 0.0 % Sodium Level 139 136-145 mmol/L Potassium Level 4.5 3.5-5.1 mmol/L Chloride Level 107 98-107 mmol/L Carbon Dioxide Level 28 20-31 mmol/L Anion Gap 4 L 5-15 Blood Urea Nitrogen 13 9-23 mg/dL Creatinine 0.73 0.550-1.02 mg/dL Glomerular Filtration Rate Calc 99 >90 mL/min BUN/Creatinine Ratio 17.8 10.0-20.0 Serum Glucose 93 74-106 mg/dL Calcium Level 9.8 8.7-10.4 mg/dL Total Bilirubin 0.3 0.2-1.0 mg/dL Aspartate Amino Transferase (AST) 57 H 13-40 U/L Alanine Aminotransferase (ALT) 73 H 7-40 U/L Alkaline Phosphatase 63 46-116 U/L Total Protein 7.3 5.7-8.2 g/dL Albumin 4.3 3.2-4.8 g/dL The patient's CBC shows a slightly elevated white blood cell count of 11.6 The rest of the CBC and chemistry panel are within normal limits The urine test is negative The patient was being discharged at this time The patient will follow up with the primary care doctor The patient will return to the emergency department's the condition worsens. Images Reviewed?: Images reviewed and evaluated by me Time of 1ST Reevaluation: 12:58 Reevaluation 1ST: Unchanged Time of 2ND Reevaluation: 14:04 Reevaluation 2ND: Improved Patient Education/Counseling: Diagnosis, Treatment, Prognosis, Need For Follow Up Family Education/Counseling: No Family Present Departure 1 Departure Time of Disposition: 14:05 Impression: Primary Impression: Chronic pelvic pain in female Disposition: 01 HOME / SELF CARE / HOMELESS Condition: Fair Discharged With: Self Critical Care Note Critical Care Time?: No Stability Stability form required: No I personally scribed for LAURENT NAGEL MD ([email or web address]) on 06/30/24 at 13:01. Electronically submitted by Michaela Dickinson ([facility]). LAURENT NAGEL MD Jun 30, 2024 13:01
[2024-06-30 13:08] VITALS: BP 103/80; PULSE 86; RESP 18; TEMP 97.7; O2SAT 97
[2024-06-30 13:36] LABS: Urine Bacteria None Seen /hpf (None Seen)
[2024-06-30 13:42] LABS: Basophils # (auto) 0.1 10 ^3/uL (0-0.2); Basophils % (auto) 1.2 % (0.0-2.0); Eosinophils # (auto) 0.2 10 ^3/uL (0-0.8); Eosinophils % (auto) 1.9 % (0.0-7.0); Hematocrit 45.5 % (36.0-46.0); Hemoglobin 15.7 g/dL (12.2-16.2); Lymphocytes # (auto) 3.4 10 ^3/uL (0.4-5.4); Mean Corpuscular Hemoglobin 31.9 pg (28.0-32.0); Mean Corpuscular Hgb Conc. 34.6 g/dL (32.0-36.0); Mean Corpuscular Volume 92.4 fL (80.0-100.0); Monocytes # (auto) 0.8 10 ^3/uL (0-1.3); Monocytes % (auto) 6.8 % (0.0-12.0); Neutrophils # (auto) 7.1 10 ^3/uL (1.6-8.6); Neutrophils % (auto) 61.1 % (37.0-80.0); Platelet Count (auto) 406 10^3/uL (140-450); Red Blood Cells 4.93 10^6/uL (4.0-5.20); Red Cell Distribution Width 13.4 % (11.8-14.3); White Blood Cell 11.6 10^3/uL (4.4-10.8)
[2024-06-30 13:47] LABS: Urine Blood Negative /uL (Negative); Urine Clarity Clear (Clear); Urine Color Light-Yellow (Yellow); Urine Protein, UAD Negative (Negative); Urine Specific Gravity 1.011 (1.001-1.035); Urine Squamous Epithelial Cell None Seen /hpf (<5); Urine Urobilinogen Normal (Negative); Urine WBC < 1 /HPF (0-5); Urine pH 5.5 (5.0-9.0)
--- NOTE | 2024-06-30 13:48 | DVH ---
Exam: CT CT AB PEL WO CON-NO ORAL OR IV History: pain Comparison Study: CT CT AB PEL WO CON-NO ORAL OR IV on DOS: 06/07/24 TECHNIQUE: Multidetector CT of the abdomen and pelvis was performed from lung bases to pubic symphysi s. Imaging was performed without IV contrast. Axial, coronal, and sagittal multiplanar reformats were obtained from the axial data set by the technologist. RADIATION DOSE: DLP 1660.48 mGy.cm; CTDI vol 26.36 mGy. Findings: Lungs: Right lower lobe osteophyte induced atelectasis. Heart: No cardiomegaly or pericardial effusion. Liver: Unremarkable. Gallbladder: Cholecystectomy. Spleen: Unremarkable Pancreas: Unremarkable Adrenals: Unremarkable Kidneys: Unremarkable GI tract: Unremarkable : Possible malpositioned IUD. Vasculature: Mild aortoiliac atherosclerosis. Lymphadenopathy: Absent Peritoneum: No ascites Musculoskeletal: Mild multilevel degenerative changes of the thoracolumbar spine. Soft tissues: Unremarkable Impression: 1. No acute abdominopelvic abnormalities. 2. Possible malpositioned IUD. Recommend pelvic ultrasound for further evaluation.
[2024-06-30 14:01] LABS: Alanine Aminotransferase 73 U/L (7-40); Albumin 4.3 g/dL (3.2-4.8); Alkaline Phosphatase 63 U/L (46-116); Anion Gap 4 (5-15); Aspartate Aminotransferase 57 U/L (13-40); BUN/Creatinine Ratio 17.8 (10.0-20.0); Bilirubin, Total 0.3 mg/dL (0.2-1.0); Blood Urea Nitrogen 13 mg/dL (9-23); Calcium 9.8 mg/dL (8.7-10.4); Carbon Dioxide 28 mmol/L (20-31); Chloride 107 mmol/L (98-107); Glucose 93 mg/dL (74-106); Potassium 4.5 mmol/L (3.5-5.1); Sodium 139 mmol/L (136-145); Total Protein 7.3 g/dL (5.7-8.2)
== END 2024-06-30 14:18 | disposition home or self-care (01) ==
LOC: ER 12:41
DX: G89.29 Other chronic pain (principal); R10.2 Pelvic and perineal pain; N64.4 Mastodynia; Z98.890 Other specified postprocedural states; Z90.49 Acquired absence of other specified parts of digestive tract
CPT/HCPCS: 36415; 74176; 80053; 81001; 85025

== ENCOUNTER 2024-07-16 08:34 | Emergency (ER) | payer MEDICAID ==
[~2024-07-16] VITALS: Ht 175.3 cm; Wt 132.7 kg
[2024-07-16 08:54] VITALS: BP 113/67; PULSE 68; RESP 16; TEMP 98.1; O2SAT 96
--- NOTE | 2024-07-16 08:56 | ED.PDOC ---
Back pain HPI Chief Complaint: Fall Injury Comments slipped and fell on wet floor yesterday, pt has history of cholecystectomy, ovarian cystectomy, chronic pelvica pain. last seen here for pelvic apin was 07/18, for gastroenteritis on 06/11/24 no LOC. no headache. only left shoulder pain Time Seen by MD: 08:48 Primary Care Provider: KATIA Carias Notes: Nurses Notes Allergies: Coded Allergies: NO KNOWN ALLERGIES (Unverified , 06/06/24) Home Meds Active Scripts Dicyclomine Hcl (BENTYL CAPSULE) 10 Mg Cp, 1 CAP PO TID for 10 Days, #90 CAP 3 Refills Prov:JONATAN GRAY RESIDENT 06/13/24 Metronidazole (Flagyl) 500 Mg Tab, 500 MG PO BID for 7 Days, #14 TAB Prov:JONATAN GRAY RESIDENT 06/13/24 Ciprofloxacin Hcl (Ciprofloxacin Hcl) 500 Mg Tab, 1 TAB PO BID for 7 Days, #14 TAB Prov:JONATAN GRAY RESIDENT 06/13/24 Acetaminophen (Acetaminophen) 500 Mg Tab, 500 MG PO Q6HP PRN for 10 Days, #40 TAB 0 Refills Prov:DURAN PRITCHARD GEOLOGICAL ENGINEERING TEACHER 06/09/24 Clindamycin Hcl (Clindamycin Hcl) 300 Mg Cap, 300 MG PO QID for 10 Days, #40 CAP Prov:ENRIKE RIOS 06/06/24 Ibuprofen (Ibuprofen) 800 Mg Tab, 1 TAB PO TID, #30 TAB Prov:ENRIKE RIOS 06/06/24 Information Source: Patient, Past Medical Record Mode of Arrival: Ambulatory Timing: Days Duration: Since onset Severity: Mild Onset: Fall Modifying Factors: Movement Past Medical History PAST MEDICAL HISTORY: Liver Past Medical History (Other): chronic pelvic pain, Surgical History: Cholecystectomy Surgical History (Other): ovarian cystectomy RN ENDOSCOPY History: Ovarian Cysts, Other Family History Family History: Reviewed,noncontributory to illness, Unknown Social History Smoker: Non-Smoker Alcohol: Denies ETOH Use Drugs: Denies Drug Use Lives In: Home Constitutional: denies: chills, diaphoresis, fatigue, fever, malaise, sweats, weakness, others EENTM: denies: blurred vision, double vision, ear bleeding, ear discharge, ear drainage, ear pain, ear ringing, eye pain, eye redness, hearing loss, mouth pain , mouth swelling, nasal discharge, nose bleeding, nose congestion, nose pain, photophobia, tearing, throat pain, throat swelling, voice changes, others Respiratory: denies: cough, hemoptysis, orthopnea, SOB at rest, shortness of breath, SOB with excertion, stridor, wheezing, others Cardiovascular: denies: chest pain, dizzy spells, diaphoresis, Dyspnea on exertion, edema, irregular heart beat, left arm pain, lightheadedness, palpitations, PND, syncope, others Gastrointestinal: denies: abdomen distended, abdominal pain, blood streaked bowels, constipated, diarrhea, dysphagia, difficulty swallowing, hematemesis, melena, nausea, poor appetite, poor fluid intake, rectal bleeding, rectal pain, vomiting, others Genitourinary: denies: abnormal vagina bleeding, burning, dyspareunia, dysuria, flank pain, frequency, hematuria, incontinence, pain, , vagina discharge, urgency, others Neurological: denies: dizziness, fainting, headache, left sided numbness, left sided weakness, numbness, paresthesia, pre-existing deficit, right sided numbness, right sided weakness, seizure, speech problems, tingling, tremors, weakness, others Musculoskeletal: reports: joint swelling; denies: back pain, gout, joint pain, muscle pain, muscle stiffness, neck pain, others Integumetry: denies: bruises, change in color, change in hair/nails, dryness, laceration, lesions, lumps, rash, wounds, others Allergic/Immunocompromised: denies: Difficulty Healing, Frequent Infections, Hives, Itching, others Hematologic/Lymphatic: denies: anemia, blood clots, easy bleeding, easy bruising, swollen glands, others Endocrine: denies: excessive hunger, excessive sweating, excessive thirst, excessive urination, flushing, intolerance to cold, intolerance to heat, unexplained weight gain, unexplained weight loss, others Psychiatric: denies: anxiety, bipolar disorder, depression, hopeless, panic disorder, schizophrenia, sleepless, suicidal, others All Other Systems: Reviewed and Negative Physical Exam General Appearance: No Apparent Distress, Normal HEENT: Normal ENT Inspection, Pharynx Normal, TMs Normal Neck: Full Range of Motion, Non-Tender, Normal, Normal Inspection Respiratory: Chest Non-Tender, Lungs Clear, No Accessory Muscle Use, No Respiratory Distress, Normal Breath Sounds Cardiovascular: No Edema, No JVD, No Murmur, No Gallop, Normal Peripheral Pulses, Regular Rate/Rhythm Breast Exam: Deferred Gastrointestinal: No Organomegaly, Non Tender, No Pulsatile Mass, Normal Bowel Sounds, Soft Genitalia: Deferred Pelvic: Deferred Rectal: Deferred Extremities: No calf tenderness, Normal capillary refill, Normal inspection, Normal range of motion, No pedal edema, Tender (left shoulder mild ttp. no deformity) Musculoskeletal : Apperance: Normal Neurologic: Alert, food counselor II-XII nml as Tested, No Motor Deficits, Normal Affect, Normal Mood, No Sensory Deficits Cerebellar Function: Normal Reflexes: Normal Skin: Dry, Normal Color, Warm Lymphatic: No Adenopathy Was a procedure done? Was a procedure done?: No Back Pain Differential Dx Differential Diagnosis: DJD, Fracture, Musculoskeletal Pain, Strain, Other (dislocation) X-Ray, Labs, Meds, VS Vital Signs Date Time Temp Pulse Resp B/P (MAP) Pulse Ox O2 Delivery O2 Flow Rate FiO2 07/16/24 08:54 68 16 96 Room Air 07/16/24 08:54 98.1 68 16 113/67 (82) 96 98.1 07/16/24 08:41 98.1 68 16 113/67 (82) 96 98.1 Time of 1ST Reevaluation: 09:38 Reevaluation 1ST: Improved Patient Education/Counseling: Diagnosis, Treatment, Prognosis, Need For Follow Up Family Education/Counseling: No Family Present Departure 1 Departure Time of Disposition: 09:38 Impression: Primary Impression: Falling Additional Impression: Left shoulder strain Qualified Codes: S46.912A - Strain of unspecified muscle, fascia and tendon at shoulder and upper arm level, left arm, initial encounter Disposition: 01 HOME / SELF CARE / HOMELESS Condition: Good e-Prescriptions Ibuprofen Micronized (MOTRIN TABLET) 600 Mg Tb 600 MG PO TID PRN, #40 TAB *Black box warning-NSAIDS can increase risk of [place] & hypertension, GI irritation, ulceration, bleed, perferation. Do not use post cardiac surgery. Use short duration/lowest effective dose. Prov: CONTRERAS AVILES MD 07/16/24 Discharged With: Self Critical Care Note Critical Care Time?: No Stability Stability form required: No CONTRERAS AVILES MD Jul 16, 2024 08:56
[2024-07-16] MEDS ORDERED: IBU600T PO (09:39)
--- NOTE | 2024-07-16 09:50 | DVH ---
XY L SHOULDER 2+ VIEW XRAY INDICATION: fall TECHNICAL DATA: 3 views were obtained of the left shoulder. COMPARISON: None FINDINGS: There is no fracture or focal bone abnormality. The glenohumeral joint is normally maintained. The ac romioclavicular joint space is maintained. There is a 9 mm sclerotic lesion in the distal clavicle w hich may reflect a bone island. IMPRESSION: 1. No acute fracture or dislocation in the left shoulder.
--- NOTE | 2024-07-16 10:06 | DVH ---
INDICATION: Fall COMPARISON: None TECHNIQUE: 3 views of the cervical spine were obtained. FINDINGS: The cervical vertebral alignment is normal. The predental space is normal. The intervertebral disc spaces are well-maintained. No significant facet arthropathy is noted. No acute fracture, vertebral compression deformity or aggressive osseous lesions. The imaged lung apices are unremarkable. IMPRESSION: 1. No acute fracture.
== END 2024-07-16 09:44 | disposition home or self-care (01) ==
LOC: ER 08:34
DX: S46.912A Strain of unspecified muscle, fascia and tendon at shoulder and upper arm level, left arm, initial encounter (principal); G89.29 Other chronic pain; Z90.49 Acquired absence of other specified parts of digestive tract; Z79.1 Long term (current) use of non-steroidal anti-inflammatories (NSAID); Z90.721 Acquired absence of ovaries, unilateral; W01.0XXA Fall on same level from slipping, tripping and stumbling without subsequent striking against object, initial encounter; Y93.89 Activity, other specified; Y92.89 Other specified places as the place of occurrence of the external cause; Y99.8 Other external cause status
CPT/HCPCS: 72040; 73030